=== PATIENT | female | born 1955 | race Caucasian/White ===

== ENCOUNTER → 2017-02-25 09:19 | Outpatient (CLI) | payer MEDICARE, MEDICAID, SELFPAY ==
[2017-02-25 11:27] VITALS: PULSE 75
== END ==
PROVIDERS: Family Provider Internal Medicine Adolescent Medicine; PCP Internal Medicine Adolescent Medicine; Visit Provider Internal Medicine Adolescent Medicine
DX: R06.02 Shortness of breath (principal)
CPT/HCPCS: 94060; 94640; 94727; 94729

== ENCOUNTER → 2017-04-11 13:20 | Outpatient (CLI) | payer MEDICARE, MEDICAID, SELFPAY ==
[2017-04-11 13:49] LABS: Basophils # 0.1 K/mm3 (0-0.2); Basophils % 0.6 % (0.1-2.0); Eosinophils # 0.2 K/mm3 (0.0-0.4); Eosinophils % 1.9 % (0.1-12.0); Hematocrit 42.1 % (37.0-47.0); Hemoglobin 14.1 g/dL (12.2-16.2); Lymphocytes # 2.5 K/mm3 (0.7-4.5); Lymphocytes % 31.9 K/mm3 (10-50); Mean Corpuscular HGB Conc 33.4 g/dL (31.8-35.4); Mean Corpuscular Hemoglobin 30.2 pg (27.0-31.2); Mean Corpuscular Volume 90.3 fl (81-99); Mean Platelet Volume 8.4 fl (7.4-10.4); Monocytes # 0.4 K/mm3 (0.1-1.0); Monocytes % 5.3 % (1.7-9.3); Neutrophils # 4.7 K/mm3 (1.8-7.8); Neutrophils % 60.2 % (37.0-80.0); Platelet Count 216 K/mm3 (142-424); Red Blood Count 4.66 M/mm3 (4.20-5.40); Red Cell Distribution Width 12.2 % (11.5-17.5); White Blood Count 7.8 K/mm3 (4.8-10.8)
[2017-04-11 14:28] LABS: Alanine Aminotransferase 24 U/L (12-78); Albumin Level 3.8 gm/dL (3.4-5.0); Albumin/Globulin Ratio 1.2 (1.1-1.8); Alkaline Phosphatase 85 U/L (46-116); Anion Gap 9.6 mEq/L (5-15); Aspartate Amino Transferase 15 U/L (15-37); Bilirubin,Total 0.2 mg/dL (0.2-1.0); Blood Urea Nitrogen 12 mg/dL (7-18); Calcium 8.8 mg/dL (8.5-10.1); Carbon Dioxide 32 mmol/L (21.0-32.0); Chloride 104 mmol/L (98-107); Creatinine,Serum 0.84 mg/dL (0.55-1.02); Estimated Glomerular Filt Rate 68 ml/min (>60); GFR (African American) 83 ML/MIN (>60); Globulin 3.3 gm/dl (1.3-3.2); Glucose 73 mg/dL (74-106); Potassium 3.6 mmoL/L (3.5-5.1); Sodium 142 mmol/L (136-145); Total Protein,Serum 7.1 gm/dL (6.4-8.2)
[2017-04-12 19:06] LABS: Vitamin B12 1488 pg/mL (232-1245)
== END ==
PROVIDERS: PCP Internal Medicine Adolescent Medicine; Visit Provider Specialist
DX: G35 Multiple sclerosis (principal)
CPT/HCPCS: 36415; 80053; 82607; 85025

== ENCOUNTER → 2017-04-16 11:03 | Outpatient (CLI) | payer MEDICARE, MEDICAID, SELFPAY ==
--- NOTE | 2017-04-16 11:07 | MR_ITS ---
MR head/brain wo/w con HISTORY: History of multiple sclerosis Burning in legs with weakness and fatigue, right-sided facial numbness and healing, multiple sclerosis ORDERING PHYSICIAN: Vidhya Lee MD PATIENT AGE: 61 years COMPARISON: 01/08/2016 TECHNIQUE: Standard multiplanar multiecho sequences are performed without and with gadolinium enhancement. FINDINGS: No midline shift, mass effect, intracranial hemorrhage, hydrocephalus, or acute infarction is evident. No restricted diffusion. No enhancing lesions. There are scattered periventricular and subcortical T2 white matter hyperintensities as previously described are similar compared to the previous exam. One lesion along the anterior body of the left lateral ventricle near or at the lateral aspect of the corpus callosum is once again noted which is similar compared to the previous study. No new lesions are evident. The cerebellopontine angle, cerebellum, and brainstem are unremarkable. No lesions are evident within the upper cervical cord or within the cerebellum. IMPRESSION: 1. Stable MRI appearance of the brain. Multiple T2 white matter hyperintensities are once again noted similar to the previous exam in keeping with patient's history of multiple sclerosis 2. No acute infarction or other acute anomalies.
== END ==
PROVIDERS: Family Provider Internal Medicine Adolescent Medicine; PCP Internal Medicine Adolescent Medicine; Visit Provider Specialist
DX: G35 Multiple sclerosis (principal)
CPT/HCPCS: 70553; A9576

== ENCOUNTER → 2018-04-21 12:26 | Outpatient (CLI) | payer MEDICARE, MEDICAID, SELFPAY | PROVIDERS: PCP Internal Medicine Adolescent Medicine; Visit Provider Internal Medicine Adolescent Medicine | DX: R07.9 Chest pain, unspecified (principal) | CPT/HCPCS: 93017 ==

== ENCOUNTER → 2018-10-07 14:23 | Outpatient (CLI) | payer MEDICARE, MEDICAID, SELFPAY ==
[2018-10-07 14:53] LABS: Basophils # 0.1 K/mm3 (0-0.2); Basophils % 0.5 % (0.1-2.0); Eosinophils # 0.2 K/mm3 (0.0-0.4); Eosinophils % 1.7 % (0.1-12.0); Hemoglobin 13.4 g/dL (12.2-16.2); Lymphocytes # 3.2 K/mm3 (0.7-4.5); Mean Corpuscular HGB Conc 32.7 g/dL (31.8-35.4); Mean Corpuscular Hemoglobin 29.5 pg (27.0-31.2); Mean Corpuscular Volume 90.4 fl (81-99); Mean Platelet Volume 7.8 fl (7.4-10.4); Monocytes # 0.5 K/mm3 (0.1-1.0); Monocytes % 5.6 % (1.7-9.3); Neutrophils % 56.2 % (37.0-80.0); Platelet Count 257 K/mm3 (142-424); Red Blood Count 4.54 M/mm3 (4.20-5.40); White Blood Count 8.9 K/mm3 (4.8-10.8)
[2018-10-07 18:09] LABS: Alanine Aminotransferase 18 U/L (12-78); Albumin Level 3.8 gm/dL (3.4-5.0); Alkaline Phosphatase 90 U/L (46-116); Aspartate Amino Transferase 13 U/L (15-37); Bilirubin,Total 0.2 mg/dL (0.2-1.0); Blood Urea Nitrogen 15 mg/dL (7-18); Calcium 9.3 mg/dL (8.5-10.1); Carbon Dioxide 30 mmol/L (21.0-32.0); Chloride 103 mmol/L (98-107); Chol/HDL Ratio 3.7 (1-3.5); Cholesterol 184 mg/dL (140-200); Creatinine,Serum 0.88 mg/dL (0.55-1.02); Estimated Glomerular Filt Rate 65 ml/min (>60); Free T4 (Free Thyroxine) 0.84 ng/dl (0.76-1.46); GFR (African American) 78 ML/MIN (>60); Globulin 3.8 gm/dl (1.3-3.2); Glucose 90 mg/dL (74-106); HDL Cholesterol 50 mg/dL (29-89); LDL Cholesterol 116 mg/dL (0-130); Sodium 143 mmol/L (136-145); Thyroid Stimulating Hormone 2.18 uIU/ml (0.358-3.740); Total Protein,Serum 7.6 gm/dL (6.4-8.2); Triglycerides 89 mg/dL (30-200); VLDL Cholesterol 18 mg/dL (0-40)
[2018-10-09 18:04] LABS: Vitamin B12 1000 pg/mL (232-1245)
== END ==
PROVIDERS: Visit Provider Nurse Practitioner Family
DX: R53.81 Other malaise (principal); I10 Essential (primary) hypertension
CPT/HCPCS: 36415; 80053; 80061; 82607; 84439; 84443; 85025

== ENCOUNTER → 2018-10-09 13:16 | Outpatient (CLI) | payer MEDICARE, MEDICAID, SELFPAY | PROVIDERS: PCP Internal Medicine Adolescent Medicine; Visit Provider Nurse Practitioner Family | DX: G47.33 Obstructive sleep apnea (adult) (pediatric) (principal); R40.0 Somnolence; R06.83 Snoring; G31.84 Mild cognitive impairment of uncertain or unknown etiology; G25.81 Restless legs syndrome | CPT/HCPCS: G0399 ==

== ENCOUNTER → 2018-11-06 15:43 | Outpatient (CLI) | payer MEDICARE, MEDICAID, SELFPAY ==
--- NOTE | 2018-11-06 16:14 | MM_ITS ---
PROCEDURE: MM DIG SCREENING MAMM BI W/CAD CLINICAL INDICATION: SCREENING There is a history of breast cancer patient's maternal grandmother. There has been a previous biopsy left breast for benign disease. COMPARISON: DMSB DIG MAMM-SCREEN JOLEEN from 09/01/2015 DMDXUL DIG MAMM-DX UNI-LT from 02/09/2016 DMSB DIG MAMM-SCREEN JOLEEN W/CAD from 09/09/2016 TECHNIQUE: Standard CC and MLO images were obtained. R2 CAD reviewed. FINDINGS: Minimal scattered fibroglandular densities are seen in both breasts on a background of fatty breast parenchyma. There is a mole lower inner quadrant right breast. There is minimal arterial calcification right breast. There is no suspicious lesion and no suspicious microcalcifications. IMPRESSION: Fibrofatty parenchyma with no suspicious lesions seen BI-RAD Category: 2 Benign Finding(s) FOLLOW-UP: 1YR 1 Year Follow-up (A letter has been sent to the patient regarding results of the study.) Dictated by: Dr. Cameron Kruse MD 11/10/2018 21:[address] Cameron Kruse MD in [place] 11/10/2018 21:27
== END ==
PROVIDERS: PCP Internal Medicine Adolescent Medicine; Visit Provider Nurse Practitioner Family
DX: Z12.31 Encounter for screening mammogram for malignant neoplasm of breast (principal)
CPT/HCPCS: 77067

== ENCOUNTER → 2019-01-18 13:47 | Outpatient (CLI) | payer MEDICARE, MEDICAID, SELFPAY ==
--- NOTE | 2019-01-18 13:50 | XR_ITS ---
PROCEDURE: XR DEXA AXIAL SKELETON CLINICAL HISTORY: POST MENOPAUSAL SCREENING COMPARISON: No exams were available for comparison FINDINGS: The L1-L4 density is 1.100 grams/centimeter sq with a T-score -0.7. Left femoral neck density is 0.854 grams/centimeter sq with a T-score -1.3 IMPRESSION: Osteopenia with moderate fracture risk. Treatment advised. Suggest follow-up exam December 2020 Dictated by: Trey Carbajal MD 01/18/2019 18:59 Electronically signed by Trey Carbajal MD in [place] 01/18/2019 18:59
== END ==
PROVIDERS: PCP Internal Medicine Adolescent Medicine; Visit Provider Nurse Practitioner Family
DX: Z13.820 Encounter for screening for osteoporosis (principal); Z78.0 Asymptomatic menopausal state; M85.89 Other specified disorders of bone density and structure, multiple sites
CPT/HCPCS: 77080

== ENCOUNTER → 2019-03-08 15:48 | Outpatient (CLI) | payer MEDICARE, MEDICAID, SELFPAY ==
--- NOTE | 2019-03-08 15:54 | XR_ITS ---
PROCEDURE: XR CERVICAL SPINE W FLEX/EXT CLINICAL INDICATION: neck pain Right-sided neck pain with headache COMPARISON: No exams were available for comparison FINDINGS: Normal alignment. There is degenerative disc disease at C4-5 C5-6 and C6-C7 and C7-T1. Mild foraminal narrowing noted on the left at C5-C6 and C6-C7 and on the right at C5-C6 and C6-C7. Right-sided carotid artery calcification noted. Flexion and extension views show no abnormal subluxation in flexion or extension. IMPRESSION: 1. Cervical spondylosis with degenerative disc disease and foraminal narrowing as described above. 2. No abnormal subluxation in flexion or extension 3. Carotid artery calcification Dictated by: Trey Carbajal MD 03/08/2019 16:16 Electronically signed by Trey Carbajal MD in [place] 03/08/2019 16:16
== END ==
PROVIDERS: PCP Internal Medicine Adolescent Medicine; Visit Provider Specialist
DX: G35 Multiple sclerosis (principal); M54.2 Cervicalgia
CPT/HCPCS: 72052

== ENCOUNTER → 2019-03-31 13:05 | Outpatient (CLI) | payer MEDICARE, MEDICAID, SELFPAY ==
--- NOTE | 2019-03-31 13:11 | CA_ITS ---
APPROVED REPORT [employer]: Didi Couch RVT Laterality: Bilateral Study Quality: Good Indications: rt sided carotid artery calcification seen on C-spine x-ray Doppler Spectral Velocity Analysis ECA (R) 56.10/6.30 cm/s ECA (L) 48.60/7.20 cm/s dICA (R) 51.20/16.90 cm/s dICA (L) 60.50/19.30 cm/s Cedrick (R) 57.40/18.60 cm/s Cedrick (L) 62.90/18.70 cm/s pICA (R) 60.40/21.80 cm/s pICA (L) 48.40/17.00 cm/s dCCA (R) 68.10/14.80 cm/s dCCA (L) 65.40/14.90 cm/s pCCA (R) 72.60/13.50 cm/s pCCA (L) 72.20/14.40 cm/s Vert (R) 45.90/11.20 cm/s Vert (L) 30.60/11.00 cm/s ICA/CCA 0.89 ICA/CCA 0.96 Findings Study suggests 20-49% stenosis (lower end of scale) in the right internal cartoid artery. Study suggests less than 20% stenosis of the left internal cartoid artery. Antegrade flow seen bilateral vertebral arteries. Conclusion Study suggests 20-49% stenosis (lower end of scale) in the right internal cartoid artery. Study suggests less than 20% stenosis of the left internal cartoid artery. Antegrade flow seen bilateral vertebral arteries. Electronically signed by : Trey Carbajal MD 03/31/2019 16:39:25
== END ==
PROVIDERS: PCP Internal Medicine Adolescent Medicine; Visit Provider Specialist
DX: I65.23 Occlusion and stenosis of bilateral carotid arteries (principal)
CPT/HCPCS: 93880

== ENCOUNTER 2019-04-07 14:00 | Outpatient (RCR) | payer MEDICARE, MEDICAID, SELFPAY ==
--- NOTE | 2019-03-10 15:19 | HMH.PTOPEV ---
PT Outpatient Evaluation Rehab PT Outpatient Evaluation Start: 03/10/19 14:47 Freq: Status: Active Protocol: Document 03/10/19 14:47 KATELYNN (Rec: 03/10/19 15:18 KATELYNN [id number]) Electronically Signed By Estevan Hook, PT 03/10/19 14:47 Outpatient Therapy Subjective History Subjective History Patient is a 63 year old female presenting to outpatient PT with reports of acute cervical spine pain starting approx 2 months ago of insidious onset. She was previously being treated by chiropractor with minimal improvements noted. Most recent diagnostics indicate cervical spondylosis, DDD and facet narrowing. Comrobidities include MS, blindness, hx of hysterectomy and tubal ligation. Chief Complaint Pain,Spasms Symptom Type Ache Symptoms Relieved By Rest/Positioning,Heat, Prescription Meds Symptoms Aggravated By Sitting,Physical Activity, Walking Prior Functional Limitations Lifting,Housework,Sitting, Recreation Activity,Walking Current Functional Limitations Lifting,Housework,Sitting, Recreation Activity,Walking Symptom Description Constant but Variable Level of pain today (0-10) 7 Pain scale - at its best (0-10) 5 Pain scale - at its worst (0-10) 9 Cervical Eval Palpation Cervical Muscles R Cervical Paraspinal,R Upper Trapezius,R Thoracic Paraspinals Posture Head/C-Spine Posture Sitting Position C-Spine Flattened Head/C-Spine Posture Standing Position C-Spine Flattened Flexibility Deficits Upper Trapezius Muscle Length (R) Moderate Tightness Levaetor Scapulae Muscle Length (R) Moderate Tightness Scalene Group Muscle Length (R) Mild Tightness Pectoralis Minor Muscle Length (R) Moderate Tightness Passive Joint Mobility Cervical PIVM Dec: R C3/4 L C3/4 R C4/5 L C4/5 R C5/6 L C5/6 R C6/7 L C6/7 R C7/T1 L C7/T1 WNL: R OA
== END 2019-04-07 14:05 | disposition home or self-care (01) ==
LOC: PT 14:00
PROVIDERS: PCP Internal Medicine Adolescent Medicine; Visit Provider Specialist
DX: M54.2 Cervicalgia (principal); G35 Multiple sclerosis
CPT/HCPCS: 20560; 97010; 97014; 97035; 97110; 97140; 97163; G0283

== ENCOUNTER → 2019-05-12 15:24 | Outpatient (CLI) | payer MEDICARE, MEDICAID, SELFPAY ==
--- NOTE | 2019-05-12 15:32 | XR_ITS ---
PROCEDURE: XR CHEST 2V CLINICAL HISTORY: ACUTE FEBRILE ILLNESS,FLU SYMPTOMS COMPARISON: CXR1 CHEST-PORTABLE from 05/03/2012 CXR CHEST(2 VIEWS-NOT PORTABLE) from 06/08/2013 CXR CHEST(2 VIEWS-NOT PORTABLE) from 01/29/2017 FINDINGS: The cardiomediastinal silhouette and pulmonary vascularity are within normal limits. The lungs are clear without infiltrates, suspicious nodules, or pleural effusions. No acute bony abnormalities. IMPRESSION: No acute findings. Dictated by: Trey Carbajal MD 05/12/2019 16:07 Electronically signed by Trey Carbajal MD in [place] 05/12/2019 16:07
== END ==
PROVIDERS: PCP Internal Medicine Adolescent Medicine; Visit Provider Internal Medicine Adolescent Medicine
DX: R50.9 Fever, unspecified (principal); R68.89 Other general symptoms and signs
CPT/HCPCS: 71046

== ENCOUNTER 2019-07-27 19:06 | Emergency (ER) | payer MEDICARE, MEDICAID, SELFPAY ==
[2019-07-27 19:21] VITALS: BP 145/83; PULSE 72; RESP 22; O2SAT 93; BMI 28.5
[2019-07-27 19:27] VITALS: BP 164/89; PULSE 65; RESP 16; TEMP 36.8; O2SAT 97; BMI 29.2
--- NOTE | 2019-07-27 19:43 | HMH.EDGENADL ---
ED Disposition Clinical Impression: Cervical radiculopathy Disposition: Home, Self-Care Condition on Discharge: Good Instructions: DI for Cervical Radiculopathy Additional Instructions: Additional instructions for CONTROLLED SUBSTANCES: You have been prescribed a medication that is a controlled substance. Controlled substances include pain medications known as opiates and sedative nerve medications known as benzodiazepines. Tramadol, fioricet, and gabapentin are also controlled substances. Some common opiates include: Codeine (such as Tylenol #3) Hydrocodone (Vicodin, Lortab, Lorcet, Annona) Oxycodone (Percocet, Percodan, Oxycodone, Oxy IR) Some common benzodiazepines include: Diazepam (Valium) Lorazepam (Ativan) Alprazolam (Xanax) Clonazepam (Klonopin) Oxazepam (Serax) All of these controlled substances are highly addictive and frequently abused. Misuse can and frequently does lead to addiction as well as overdose and . Medication should be stored in a locked cabinet or other secure storage unit. Do not store the medication in a motor vehicle. Short term supplies, 3 days or less, are prescribed because of the highly addictive nature of the medication. Any of the controlled substance medication NOT taken should be disposed of properly and NOT SAVED. The recommended method of disposing of unused medications is: Place the medicines in a sealable plastic bag. If the medicine is a solid, crush it or add water to dissolve it. Add something undesirable (cat litter, coffee grounds, etc.) Dispose of sealed bag in household trash Do not flush or pour unused medicines down a sink or drain. Controlled substances should not be shared, given away or sold. Because of the addictive nature and frequent abuse, these medications are sometimes stolen. These medications should be kept in a safe place where they cannot be stolen. Do not keep them in your car or purse. Lost or stolen prescriptions for controlled substances WILL NOT BE REFILLED in this emergency department, regardless of whether a police report was filed. Prescriptions: Oxycodone HCl/Acetaminophen [Percocet 5/325mg tablet] 1 tab PO Q6HP PRN #10 tablet PRN Reason: Moderate To Severe Pain Transmission Status: Sent to [facility] predniSONE [Prednisone 20mg Tab] 20 mg PO BID #10 tab Transmission Status: Pending to [facility] Referrals: Tree Clemons MD [Primary Care Provider] - - Critical Care Critical Care Time: No Attestation: On 07/27/19, the high probability of a clinically significant, sudden or life threatening deterioration of the following system(s) required my full and direct attention, intervention and personal management. The time I documented below is in addition to time spent performing reported procedures but includes the following listed in this critical care notation. Medical Decision Making - Sea Inquiry Pt receiving controlled substance: Yes Sea was queried for this patient: Yes Reference #:: [id number] Risks and benefits of using a controlled substance: were discussed with pt by me Comment: 0 rxs. Vital Signs: 07/27/19 19:21 07/27/19 19:27 Temperature 98.2 F Temperature Source Oral Pulse Rate [Left Brachial] 72 65 Respiratory Rate 22 16 Blood Pressure [Left Arm] 145/83 H 164/89 H Blood Pressure Mean [Left Arm] 103 114 Blood Pressure Source [Left Arm] Automatic Cuff Automatic Cuff Blood Pressure Position [Left Arm] Sitting Sitting 02 Sat by Pulse Oximetry 93 L 97 Oxygen Delivery Method Room Air Room Air Orders (Tests/Meds): ED MEDICATIONS Discontinued Medications Generic Name Dose Route Start Last Admin Trade Name Freq PRN Reason Stop Dose Admin Dexamethasone Sodium Phosphate 8 mg 07/27/19 19:43 Decadron 4mg/Ml 1ml Vial IM 07/27/19 19:44 ONCE ONE Hydromorphone HCl 1 mg 07/27/19 19:43 Dilaudid 2mg/Ml Syringe IM 07/27/19 19:44 ONCE ONE Ondanse
[2019-07-27 20:14] VITALS: BP 156/81; PULSE 62; RESP 17; TEMP 36.8; O2SAT 97
== END 2019-07-27 20:15 | disposition home or self-care (01) ==
PROVIDERS: Emergency Provider Emergency Medicine; PCP Internal Medicine Adolescent Medicine
DX: M54.12 Radiculopathy, cervical region (principal); G35 Multiple sclerosis; K21.9 Gastro-esophageal reflux disease without esophagitis; I10 Essential (primary) hypertension; Z88.5 Allergy status to narcotic agent; F41.8 Other specified anxiety disorders; Z90.79 Acquired absence of other genital organ(s); Z79.899 Other long term (current) drug therapy
CPT/HCPCS: 96372; 99281; J2405

== ENCOUNTER 2019-08-16 13:25 | Emergency (ER) | payer MEDICARE, MEDICAID, SELFPAY ==
[2019-08-16 13:27] VITALS: BP 165/73; PULSE 80; RESP 16; TEMP 36.6; O2SAT 98; BMI 29.2
--- NOTE | 2019-08-16 14:50 | CT_ITS ---
PROCEDURE: CT CERVICAL SPINE WO CON CLINICAL INDICATION: neck pain With radiation to right shoulder COMPARISON: 03/08/2019 cervical spine TECHNIQUE: Axial images obtained with sagittal and coronal reformats. All CT scans at the facility use one or more dose reduction, viz: automated exposure control, ma/kV adjustment per patient size (including targeted exams where dose is matched to indication, i.e. head), or iterative reconstruction technique. Axial spiral CT scanning performed of the cervical spine beginning at the base of the skull and continuing to the upper T-spine. 3-D multiplanar reconstruction with 3-D manipulation of volumetric data set in image rendering was completed by the radiologist and/or technologist with the supervision of the radiologist on independent workstation. FINDINGS: There is very mild diffuse levo scoliotic curvature of the cervical spine. There multilevel degenerate changes most prominent at the C5-6 and C6-7 levels where there is disc space narrowing and anterior and posterior osteophytic spurring. There is no significant disc protrusion and there is no significant neural foraminal narrowing on either side. There is mild multilevel osteoarthritic changes of the apophyseal joints. The prevertebral soft tissues are normal and the odontoid is normal. IMPRESSION: Moderate multilevel degenerate changes Dictated by: Dr. Cameron Kruse MD 08/17/2019 08:[address] Cameron Kruse MD in [place] 08/17/2019 08:25
[2019-08-16 14:51] VITALS: BP 187/79; PULSE 79; RESP 18; O2SAT 99
--- NOTE | 2019-08-16 14:51 | CT_ITS ---
PROCEDURE: CT CHEST WO CON CLINICAL INDICATION: chest pain right-sided COMPARISON: PA and lateral chest 05/12/2019 . TECHNIQUE: Axial images obtained with sagittal and coronal reformats. All CT scans at the facility use one or more dose reduction, viz: automated exposure control, ma/kV adjustment per patient size (including targeted exams where dose is matched to indication, i.e. head), or iterative reconstruction technique. FINDINGS: HEART AND MEDIASTINAL STRUCTURES: Cardiac size is normal. There is mild coronary artery calcification. There is no pericardial effusion. There is mild arthrosclerotic calcification of the aortic arch and descending thoracic aorta. LUNGS AND PLEURAL SPACES: The lung piña are well-expanded and appear clear of infiltrate. There are few scattered small calcified granulomata in both lungs. There is no pleural fluid. BONY STRUCTURES: No acute bony abnormalities apparent. There mild to moderate multilevel degenerate changes of the mid and lower thoracic spine. UPPER ABDOMEN: The stomach is distended with ingested food particles. ADDITIONAL FINDINGS: No other significant abnormalities. IMPRESSION: Evidence of old granulomatous disease, no acute cardiopulmonary disease seen Dictated by: Dr. Cameron Kruse MD 08/17/2019 08:[address] Cameron Kruse MD in [place] 08/17/2019 08:29
[2019-08-16 15:42] LABS: Basophils # 0.1 K/mm3 (0-0.2); Basophils % 0.7 % (0.1-2.0); Eosinophils # 0.2 K/mm3 (0.0-0.4); Eosinophils % 2.2 % (0.1-12.0); Hematocrit 45.1 % (37.0-47.0); Lymphocytes # 3.4 K/mm3 (0.7-4.5); Lymphocytes % 32.9 % (10-50); Mean Corpuscular HGB Conc 33.3 g/dL (31.8-35.4); Mean Corpuscular Hemoglobin 29.5 pg (27.0-31.2); Mean Corpuscular Volume 88.5 fl (81-99); Mean Platelet Volume 8.4 fl (7.4-10.4); Monocytes # 0.6 K/mm3 (0.1-1.0); Monocytes % 5.8 % (1.7-9.3); Neutrophils % 58.5 % (37.0-80.0); Platelet Count 235 K/mm3 (142-424); Red Blood Count 5.09 M/mm3 (4.20-5.40); White Blood Count 10.2 K/mm3 (4.8-10.8)
[2019-08-16 15:43] LABS: Chloride 104 mmol/L (98-107); Sodium 141 mmol/L (136-145)
[2019-08-16 15:44] LABS: Potassium 3.5 mmoL/L (3.5-5.1)
[2019-08-16 15:47] LABS: Anion Gap 9.5 mEq/L (5-15); Blood Urea Nitrogen 14 mg/dl (7-17); Calcium 9.5 mg/dl (8.4-10.2); Carbon Dioxide 31 mmol/L (22.0-30.0); Creatinine Clearance Estimated 60 mL/min (50-200); Estimated Glomerular Filt Rate 50 ml/min (>60); GFR (African American) 60 ML/MIN (>60); Glucose 120 mg/dl (74-100)
[2019-08-16 16:04] LABS: Troponin I < 0.01 ng/ml (0.00-0.034)
[2019-08-16 16:30] VITALS: BP 170/86; PULSE 72; RESP 20; O2SAT 99
--- NOTE | 2019-08-16 16:38 | HMH.EDGENADL ---
ED Disposition Clinical Impression: Multiple sclerosis, Cervical radiculopathy Disposition: Home, Self-Care Condition on Discharge: Good Instructions: DI for Acute Pain -- Adult Prescriptions: methylPREDNISolone [Medrol 4mg tab] 4 mg PO DIRECTED #21 tab Transmission Status: Pending to [facility] Nabumetone 750 mg PO BID 10 Days #20 tab Transmission Status: Pending to [facility] Tizanidine HCl [Zanaflex 4mg tablet] 4 mg PO TID 10 Days #30 tab Transmission Status: Pending to [facility] Referrals: Tree Clemons MD [Primary Care Provider] - - Critical Care Critical Care Time: No Attestation: On 08/16/19, the high probability of a clinically significant, sudden or life threatening deterioration of the following system(s) required my full and direct attention, intervention and personal management. The time I documented below is in addition to time spent performing reported procedures but includes the following listed in this critical care notation. Medical Decision Making - Medical Records Medical records reviewed: Yes: I reviewed the patient's medical records. - Sea Inquiry Pt receiving controlled substance: No Vital Signs: 08/16/19 13:27 08/16/19 14:51 Temperature 98 F Temperature Source Oral Pulse Rate [Left Radial] 80 79 Respiratory Rate 16 18 Blood Pressure [Right Arm] 165/73 H 187/79 H Blood Pressure Mean [Right Arm] 103 115 Blood Pressure Source [Right Arm] Automatic Cuff Blood Pressure Position [Right Arm] Sitting Supine 02 Sat by Pulse Oximetry 98 99 Oxygen Delivery Method Room Air - Lab Data Lab results reviewed: Yes: I reviewed the patient's lab results. Lab Results 08/16/19 15:20: WBC 10.2, RBC 5.09, Hgb 15.0, Hct 45.1, MCV 88.5, MCH 29.5, MCHC 33.3, RDW 13.0, Plt Count 235, MPV 8.4, Neut % (Auto) 58.5, Lymph % (Auto) 32.9, [place] % (Auto) 5.8, Eos % (Auto) 2.2, Baso % (Auto) 0.7, Neut # (Auto) 6.0, Lymph # (Auto) 3.4, [place] # (Auto) 0.6, Eos # (Auto) 0.2, Baso # (Auto) 0.1 08/16/19 15:20: Sodium 141, Potassium 3.5, Chloride 104, Carbon Dioxide 31 H, Anion Gap 9.5, BUN 14, Creatinine 1.10 H, Estimated Creat Clear 60, Estimated GFR 50 L, Est GFR ( Amer) 60, Glucose 120 H, Calcium 9.5, Troponin I < 0.01 Result diagrams: 08/16/19 15:20 08/16/19 15:20 Orders (Tests/Meds): ORDERS Category Date Time Status CT cervical spine wo con Stat Cat Scan 08/16/19 14:[address] chest wo con Stat Cat Scan 08/16/19 14:51 Taken Troponin I Q3H Lab 08/16/19 18:00 Ordered Troponin I Q3H Lab 08/16/19 21:00 Ordered - CT Data CT Scan: Head, C-Spine, Chest Time Received: 13:00 Preliminary Findings: Abnormal (There are straightening of the cervical spine suggestive of acute muscle spasms patient does have significant facet facet apathy and arthropathy in the cervical spine more so on the right than the left.) - ECG Data Tracing #1 I reviewed this ECG and interpreted as documented below: Normal Sinus Rhythm: Yes General Adult HPI - General Chief complaint: PAIN Stated complaint: Pain right arm neck back pain No Accident Time Seen by Provider: 08/16/19 13:28 Mode of Arrival: Ambulatory Source of Information: Patient Limitations: No Limitations Description of Symptoms (Recalled from ER Triage Doc. by RN): to ed per pvt car with c/o neck, back, shoulder pain x several months progressively worse radiating down jose arms and hands pt states she is to see neuro in 2 days. - History of Present Illness HPI narrative: 63-year-old female presents with right arm pain and neck pain that is started about 2 days ago. She does have chronic pain secondary to MS. And this is an acute exacerbation on chronic pain. Patient denies any trauma or injury.Patient denies any recent cough or shortness of breath, patient denies any sore throat or headache, patient denies any loss of taste or smell, patient denies any malaise or fatigue, patient denies an
[2019-08-16 17:31] VITALS: BP 108/78; PULSE 78; RESP 16; TEMP 36.6; O2SAT 98
== END 2019-08-16 17:33 | disposition home or self-care (01) ==
PROVIDERS: Emergency Provider Family Medicine; PCP Internal Medicine Adolescent Medicine
DX: M54.12 Radiculopathy, cervical region (principal); G35 Multiple sclerosis; F41.8 Other specified anxiety disorders; I10 Essential (primary) hypertension; K21.9 Gastro-esophageal reflux disease without esophagitis; Z90.79 Acquired absence of other genital organ(s); Z88.5 Allergy status to narcotic agent
CPT/HCPCS: 71250; 72125; 80048; 84484; 85025; 96374; 99283

== ENCOUNTER → 2019-08-23 13:40 | Outpatient (CLI) | payer MEDICARE, MEDICAID, SELFPAY ==
[2019-08-23 22:09] LABS: Coronavirus 19 IgG Antibody Positive (Negative); Coronavirus 19 IgM Antibody Negative (Negative)
== END ==
PROVIDERS: Visit Provider Nurse Practitioner Family
DX: Z01.818 Encounter for other preprocedural examination (principal)
CPT/HCPCS: 36415; 86328

== ENCOUNTER → 2019-08-25 19:27 | Outpatient (CLI) | payer MEDICARE, MEDICAID, SELFPAY | PROVIDERS: PCP Internal Medicine Adolescent Medicine; Visit Provider Nurse Practitioner Family | DX: G47.33 Obstructive sleep apnea (adult) (pediatric) (principal) | CPT/HCPCS: 95811 ==

== ENCOUNTER → 2019-09-01 13:08 | Outpatient (CLI) | payer MEDICARE, MEDICAID, SELFPAY ==
--- NOTE | 2019-09-01 13:09 | MR_ITS ---
PROCEDURE: MR CERVICAL SPINE WO CON CLINICAL INDICATION: CERVICAL PAIN Neck pain with rt arm pain down to elbow. Pain, numbness, and tingling down rt arm. No trauma, prior CT 08-16-19 Prior MRI 01-17-15 COMPARISON: [facility] MRI-C-SPINE W/WO from 01/17/2015 TECHNIQUE: Standard multiplanar multiecho sequences are performed without contrast. 3-D MIP and myelographic images are also rendered and reviewed FINDINGS: There is normal alignment. The craniocervical junction has an unremarkable appearance. C2-C3: Unremarkable. C3-C4: Unremarkable. C4-C5: Mild degenerative disc disease with minimal bulging disc. C5-C6: Mild degenerative disc disease with minimal bulging disc. C6-C7: Mild degenerative disc disease with minimal bulging disc C7-T1 and T1-T2 have an unremarkable appearance. T2-T3: There is a small central disc protrusion/herniation at T2-T3. This is incompletely covered on the axial images but well delineated on the sagittal images without cord impingement. IMPRESSION: 1. Mild multilevel degenerative disc disease. 2. Small central disc protrusion/herniation at T2-T3 Dictated by: Trey Carbajal MD 09/02/2019 14:13 Electronically signed by Trey Carbajal MD in [place] 09/02/2019 14:13
== END ==
PROVIDERS: PCP Internal Medicine Adolescent Medicine; Visit Provider Specialist
DX: M54.2 Cervicalgia (principal)
CPT/HCPCS: 72141; 76376

== ENCOUNTER → 2019-09-20 13:02 | Outpatient (POV) | payer MEDICARE, MEDICAID, SELFPAY ==
[2019-09-20 13:09] VITALS: BP 174/89; PULSE 76; RESP 18; TEMP 36.5; O2SAT 97; BMI 29.0
--- NOTE | 2019-09-20 13:35 | HMH.PAINSOAP ---
[facility] Pain Management SOAP Note Subjective:: Patient is a 61-year-old white female who presents today for complaints of neck pain with radiation into her right arm. She says that this pain is been ongoing for 12 years. She rates her pain a 7 out of 10. She did undergo imaging a week ago of her cervical spine. Patient I did discuss her MRI and we did discuss options, however, she is not interested in injective therapy or implanted devices. Patient says that she has had injections in the past and is not gotten relief. She is scheduled to have a nerve conduction study as well as physical therapy at this time. She is not interested in any type of treatment that we have to offer at this time. Review of Systems General: No recent weight changes, no fever, no sleep disturbances Respiratory: No cough, no shortness of air, no recurring pulmonary infections Cardiovascular/peripheral vascular: No chest pain, no palpitations, no edema, no shortness of breath Gastrointestinal: No new onset incontinence, normal bowel movements reported Genitourinary: No new onset incontinence Musculoskeletal: Neck pain, right arm pain with numbness and tingling Psychiatric: Normal mood/affect Neurological: [Denies weakness in extremities], [denies balance issues] Objective:: Physical exam General: Alert and oriented x3, no acute distress, pleasant and cooperative, [on room air] Lungs: Respirations even and unlabored, symmetrical chest expansion Eyes: PERRL Musculoskeletal: Flexion and extension of her vocal spine somewhat guarded secondary to pain, deep tendon reflexes normal, strength in upper and lower extremities [5/5], normal gait noted Neurological: Speech clear, sales service assistant equal, no gross sensory deficit Assessment:: Degenerative disc disease cervical spine with cervical radiculopathy symptoms, Plan:: Unfortunately the patient is not interested in any type of interventions that we have to offer. She would like to follow-up with a neurologist at this time. Patient has been instructed to contact the clinic if she has any concerns in the future. The patient and I specifically discussed risk factors for COVID19. These risks include, but are not limited to age greater than 60, heart or lung disease, diabetes, immunosuppression, and travel. We also discussed NSAIDs may worsen COVID19 infection or symptoms. Patient should not use NSAIDs to treat COVID19 signs or symptoms. Patient was also informed that any type of corticosteroid of any form (oral or injection) will decrease the patient's immune system response and may increase the likelihood of COVID19 infection [address] symptoms[address]. Ford has reviewed this note and agrees with this plan of care. This note was dictated using voice recognition software and make contain errors or omissions. [facility] History I have reviewed the patient's past medical history: Yes Medical History: Reports:: Anxiety, Depression, Gastroesophageal Reflux Disease(GERD), Hypertension *Have you ever received a pneumonia vaccine?: Yes *Have you received a flu vaccine this season?: Yes Other Medical History: Reports: Arthritis, Other Laterality Cases: Left: Breast Biopsy Other Surgeries: Yes: Colonoscopy, Hysterectomy-Total, Tubal Ligation, Other - *Social History Smoking Status: Former smoker Tobacco Type: cigarettes # Packs/Day (cigarettes): 1 Alcohol Intake: never Alcohol Intake Frequency:: other Substance Use Type: denies use *Occupational Status:: disabled Housing: house Household Members: other (granddaughter) *Travel in the last 8 weeks: None - Psychiatric History Pschychiatric History:: Reports:: Anxiety, Depression Family Hx:: Coronary Artery Disease
== END ==
PROVIDERS: Visit Provider Clinical Nurse Specialist Family Health
DX: M50.10 Cervical disc disorder with radiculopathy, unspecified cervical region (principal)
CPT/HCPCS: 99212

== ENCOUNTER 2019-10-01 15:00 | Outpatient (RCR) | payer MEDICARE, MEDICAID, SELFPAY ==
--- NOTE | 2019-09-13 14:37 | HMH.PTOPEV ---
PT Outpatient Evaluation Rehab PT Outpatient Evaluation Start: 09/13/19 13:54 Freq: Status: Active Protocol: Document 09/13/19 13:54 TAVIABART (Rec: 09/13/19 14:37 LEA [id number]) Electronically Signed By Cyrus Crocker PT 09/13/19 13:54 Outpatient Therapy Subjective History Subjective History This is the initial Physical Therapy evaluation for Hazel Kern. Pt reports pain in neck and UE for years . Pt reports last several months pain has increased. Pt reports that maybe she was mowing and turned it wrong which increased pain. Pt reports she has pain in BUE w/ R>L, with pain going into hands. Pt reports her pain is constant. Chief Complaint Pain Symptom Type Ache,Sharp,Stabbing,Burning, Numbness,Tingling,Other Symptoms Relieved By Heat,Ice,OTC Meds Symptoms Aggravated By Physical Activity Current Functional Limitations Lifting,Housework,Sleeping, Recreation Activity Symptom Description Constant but Variable Level of pain today (0-10) 4 Pain scale - at its best (0-10) 4 Pain scale - at its worst (0-10) 10 Cervical Eval Palpation Cervical Muscles R Cervical Paraspinal,L Cervical Paraspinal,R Suboccipital,L Suboccipital,R CT Junction,L CT Junction,R Upper Trapezius,L Upper Trapezius Cervical/Thoracic Palpation Findings Tenderness,Muscle Guarding AROM Cervical Spine Extension Active Range of 45 Motion (degrees) Cervical Spine Flexion Active Range of 60 Motion (degrees) Cervical Spine Right Lateral Flexion 40 Active Range of Motion (degrees) Cervical Spine Left Lateral Flexion 40 Active Range of Motion (degrees) Cervical Spine Right Rotation Active 70 Range of Motion (degrees) Cervical Spine Left Rotation Active 70 Range of Motion (degrees) DTR Rt Biceps 0 Lt Biceps 0 Rt Brachioradialis 0 Lt Brachioradialis 0 Special Test C-Spine Foraminal Compression (Spurling) Positive Left,Positive Right Test C-Spine Foraminal Distraction Test Positive C-Spine Compression Test Negative Left,Negative Right Outpatient Therapy Assessment Impairments Problems/Impairmments Palpat
== END 2019-10-01 15:05 | disposition home or self-care (01) ==
LOC: PT 15:00
PROVIDERS: PCP Internal Medicine Adolescent Medicine; Visit Provider Specialist
DX: M54.2 Cervicalgia (principal); G89.29 Other chronic pain; M79.601 Pain in right arm
CPT/HCPCS: 97010; 97012; 97014; 97110; 97163; G0283

== ENCOUNTER 2019-10-15 15:00 | Outpatient (RCR) | payer MEDICARE, MEDICAID, SELFPAY ==
--- NOTE | 2019-10-11 15:45 | HMH.OTOPEV ---
OT Inpatient Evaluation Rehab OT Outpatient Eval Start: 10/11/19 15:31 Freq: Status: Active Protocol: Document 10/11/19 15:32 RMDUNCAN (Rec: 10/11/19 15:45 [facility] [id number]) Electronically Signed By Bhavin Bass OT 10/11/19 15:32 Outpatient Therapy Subjective History Subjective History Pt is a 63 year old female who reports to therapy for initial evaluation to right wrist. Pt reports she has been having pain on and off at right wrist/hand for years now. Pt does not recall a specific injury causing the pain. Pt had a nerve conduction test ~1 week ago which dx pt with CTS in right wrist. Pt has a past medical history of MS; pt was diagnosed in 1992. Pt is also legally blind and has sitters with her certain days a week. Pt claims she is independent with ADL's. Pt demonstrates with normal AROM at wrist. 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 Therapist will continue to see patient in order to address all deficits. Chief Complaint Pain,Weakness,Decreased Electric Utility Lineworker Strength Symptom Type Ache,Throb,Sharp,Dull,Numbness ,Tingling Symptoms Relieved By Nothing,Activity Symptoms Aggravated By Physical Activity Prior Functional Limitations None Current Functional Limitations Lifting,Housework,Sleeping, Recreation Activity Symptom Description Intermittent,Activity Dependent Level of pain today (0-10) 1 Pain scale - at its best (0-10) 1 Pain scale - at its worst (0-10) 4 Wrist/Hand Eval Wrist Range of Motion Right Wrist Extension Active Range of Motion ( 70 degrees degrees) Wrist Flexion Active Range of Motion ( 60 degrees degrees) Wrist Radial Deviation Active Range of 25 degrees Motion (degrees) Wrist Ulnar Deviation Active Range of 25 degrees Motion (degrees) Forearm Supination Active Range of 90 degrees Motion (degrees) Forearm Pronation Active Range of Motion 90 degrees (de
== END 2019-10-15 15:05 | disposition home or self-care (01) ==
LOC: OT 15:00
PROVIDERS: Visit Provider Specialist
DX: G56.01 Carpal tunnel syndrome, right upper limb (principal)
CPT/HCPCS: 97110; 97140; 97165

== ENCOUNTER → 2019-11-09 12:51 | Outpatient (CLI) | payer MEDICARE, MEDICAID, SELFPAY ==
[2019-11-09 13:40] LABS: Basophils # 0.1 K/mm3 (0-0.2); Basophils % 0.7 % (0.1-2.0); Eosinophils # 0.2 K/mm3 (0.0-0.4); Eosinophils % 1.8 % (0.1-12.0); Hemoglobin 14.3 g/dL (12.2-16.2); Lymphocytes # 2.5 K/mm3 (0.7-4.5); Lymphocytes % 30.9 % (10-50); Mean Corpuscular HGB Conc 33.3 g/dL (31.8-35.4); Mean Corpuscular Hemoglobin 29.9 pg (27.0-31.2); Mean Corpuscular Volume 89.6 fl (81-99); Mean Platelet Volume 9.6 fl (7.4-10.4); Monocytes # 0.5 K/mm3 (0.1-1.0); Monocytes % 6.5 % (1.7-9.3); Neutrophils # 4.9 K/mm3 (1.8-7.8); Neutrophils % 60.1 % (37.0-80.0); Platelet Count 212 K/mm3 (142-424); White Blood Count 8.1 K/mm3 (4.8-10.8)
[2019-11-09 14:18] LABS: Chloride 104 mmol/L (98-107); Potassium 4.4 mmoL/L (3.5-5.1); Sodium 142 mmol/L (136-145)
[2019-11-09 14:21] LABS: Alanine Aminotransferase 16 U/L (12-78); Albumin Level 4.4 g/dl (3.5-5.0); Albumin/Globulin Ratio 1.4 (1.1-1.8); Alkaline Phosphatase 75 U/L (38-126); Anion Gap 12.4 mEq/L (5-15); Aspartate Amino Transferase 29 U/L (14-36); Bilirubin,Total 0.7 mg/dl (0.2-1.3); Blood Urea Nitrogen 11 mg/dl (7-17); Carbon Dioxide 30 mmol/L (22.0-30.0); Cholesterol 178 mg/dl (140-200); Estimated Glomerular Filt Rate 72 ml/min (>60); GFR (African American) 87 ML/MIN (>60); Globulin 3.1 g/dL (1.3-3.2); Total Protein,Serum 7.5 g/dl (6.3-8.2); Triglycerides 90 mg/dl (30-150); VLDL Cholesterol 18 mg/dL (0-40)
[2019-11-09 14:22] LABS: Chol/HDL Ratio 3.4 (1-3.5); Glucose 103 mg/dl (74-100); HDL Cholesterol 52 mg/dl (40-60)
[2019-11-09 14:33] LABS: Direct LDL Cholesterol 108.48 mg/dL (100-129)
[2019-11-09 14:52] LABS: Thyroid Stimulating Hormone 1.11 uIU/mL (0.465-4.68)
== END ==
PROVIDERS: Visit Provider Nurse Practitioner Family
DX: I10 Essential (primary) hypertension (principal); G47.33 Obstructive sleep apnea (adult) (pediatric)
CPT/HCPCS: 36415; 80053; 80061; 84443; 85025

== ENCOUNTER → 2019-11-10 12:41 | Outpatient (CLI) | payer MEDICARE, MEDICAID, SELFPAY ==
--- NOTE | 2019-11-10 12:41 | MM_ITS ---
PROCEDURE: MM DIG SCREENING MAMM BI W/CAD Digital Breast Tomosynthesis Included CLINICAL INDICATION: screening xmg There is a history of breast cancer patient's maternal grandmother. The patient currently is on estrogen. COMPARISON: MG DMDXUL DIG MAMM-DX UNI-LT from 02/09/2016 MG DMSB DIG MAMM-SCREEN JOLEEN W/CAD from 09/09/2016 MG MM DIG SCREENING MAMM BI W/CAD from 11/06/2018 TECHNIQUE: Standard CC and MLO images and 3D Tomosynthesis was obtained. R2 CAD reviewed. FINDINGS: The breasts are composed primarily of fat with scattered fibroglandular densities in the central portions of both breast and the findings are bilateral and symmetrical. There is faint arterial calcification in each breast. There is a mole marker right breast. There is a stable tiny benign-appearing nodular density lower outer right breast. There is no suspicious lesion and no suspicious microcalcifications. IMPRESSION: Fibrofatty parenchyma with no suspicious lesions seen BI-RAD Category: 2 Benign Finding(s) FOLLOW-UP: 1YR 1 Year Follow-up (A letter has been sent to the patient regarding results of the study.) Dictated by: Dr. Cameron Kruse MD 11/12/2019 10:54 Dr. Cameron Kruse MD in [place] 11/12/2019 10:54
== END ==
PROVIDERS: PCP Internal Medicine Adolescent Medicine; Visit Provider Nurse Practitioner Obstetrics & Gynecology
DX: Z12.31 Encounter for screening mammogram for malignant neoplasm of breast (principal)
CPT/HCPCS: 77063; 77067

== ENCOUNTER → 2019-12-13 12:35 | Outpatient (CLI) | payer MEDICARE, MEDICAID, SELFPAY ==
--- NOTE | 2019-12-13 12:41 | XR_ITS ---
PROCEDURE: XR FOOT WT BEARING RT 3V CLINICAL INDICATION: pain COMPARISON: No exams were available for comparison FINDINGS: No fracture or dislocation. No lytic or blastic change. There is normal mineralization. There are minimal osteoarthritic changes at the 1st MTP joint and 1st interphalangeal joint. Other findings:Normal alignment. IMPRESSION: Minimal osteoarthritis Dictated by: Trey Carbajal MD 12/13/2019 16:23 Trey Carbajal MD in [place] 12/13/2019 16:23
--- NOTE | 2019-12-13 12:41 | XR_ITS ---
PROCEDURE: XR FOOT WT BEARING LT 3V CLINICAL INDICATION: pain COMPARISON: No exams were available for comparison FINDINGS: No fracture or dislocation. No lytic or blastic change. There is normal mineralization. Minimal osteoarthritic changes are present at the 1st metacarpal phalangeal joint. There is a type 1 os navicularis. Other findings:None. IMPRESSION: Minimal osteoarthritis 1st MTP joint Dictated by: Trey Carbajal MD 12/13/2019 16:22 Trey Carbajal MD in [place] 12/13/2019 16:22
== END ==
PROVIDERS: PCP Internal Medicine Adolescent Medicine; Visit Provider Podiatrist
DX: M79.672 Pain in left foot (principal); M79.671 Pain in right foot
CPT/HCPCS: 73630

== ENCOUNTER 2019-12-13 14:36 | Emergency (ER) | payer MEDICARE, MEDICAID, SELFPAY ==
[2019-12-13 14:49] VITALS: BP 178/90; PULSE 69; RESP 14; TEMP 36.7; O2SAT 99; BMI 27.3
--- NOTE | 2019-12-13 14:58 | HMH.EDUTC ---
[facility] [place] Disposition Clinical Impression: Need for Tdap vaccination Burn of right hand Qualifiers: Encounter type: initial encounter Burn of hand location: unspecified site Burn degree: partial thickness (2nd degree) Qualified Code(s): T23.201A - Burn of second degree of right hand, unspecified site, initial encounter Disposition: Home, Self-Care Condition on Discharge: Good Instructions: How to Take Care of a Burn, DI for [place] Additional Instructions: Keep the wounds clean and dry. Follow up with your regular doctor. Take the antibiotics as directed and apply the topical antibiotics as directed. GO TO THE ER FOR ANY WORSENING SYMPTOMS Prescriptions: Mupirocin [Bactroban 2% Ointment 22gm tube] 1 applicatio TP TID 7 Days #1 tube Transmission Status: Received by [id number] cephALEXin [Keflex 500mg Cap] 500 mg PO Q6H 10 Days #40 cap Transmission Status: Received by [id number] Referrals: Norma Huerta APRN [Primary Care Provider] - Time of Disposition: 15:13 Medical Decision Making - Medical Records Medical records reviewed: No: I reviewed the patient's medical records. - Sea Inquiry Pt receiving controlled substance: No Vital Signs: 12/13/19 14:49 Temperature 98.1 F Temperature Source Oral Pulse Rate [Radial] 69 Respiratory Rate 14 Blood Pressure [Right Arm] 178/90 H Blood Pressure Mean [Right Arm] 119 Blood Pressure Source [Right Arm] Automatic Cuff Blood Pressure Position [Right Arm] Sitting 02 Sat by Pulse Oximetry 99 Oxygen Delivery Method Room Air Orders (Tests/Meds): ED MEDICATIONS Discontinued Medications Generic Name Dose Route Start Last Admin Trade Name Freq PRN Reason Stop Dose Admin Tetanus/Reduced Diphtheria/Acell Pertussis 0.5 ml 12/13/19 15:13 Tet/Diphth/Pert-Adult 0.5ml Syringe IM 12/13/19 15:14 .ONCE ONE [facility] [place] HPI - General Stated complaint: Possible infected burn R hand Time Seen by Provider: 12/13/19 14:58 Mode of Arrival: Ambulatory Source of Information: Patient Limitations: No Limitations Description of Symptoms (Recalled from Triage Doc. by RN): burned right hand 4 days ago HEENT Symptoms (Recalled from RN notes): No Resp Symptoms (Recalled from RN notes): No Skin Symptoms (Recalled from RN notes): Yes MS Symptoms (Recalled from RN notes): No Functional Status (Recalled from RN notes): wnl - History of Present Illness Provider Complaint: She states that she burned the back of her right hand 4 days ago while cooking. Since then, the burn has developed redness around it. Her tetanus immunzation is not up to date. - Related Data Home Medications Medication Instructions Recorded Confirmed omeprazole 40 mg capsule,delayed 40 mg PO ONCE 04/07/17 12/13/19 release Nabumetone 750 mg PO BID 09/20/19 12/13/19 Tizanidine HCl 4 mg PO QHS 09/20/19 12/13/19 Previous Rx's Medication Instructions Recorded Mupirocin [Bactroban 2% Ointment 1 applicatio TP TID 7 Days #1 tube 12/13/19 22gm tube] Voltaren 1 % topical gel 4 g TOPICAL QID PRN 30 Days #300 g 12/13/19 NS cephALEXin [Keflex 500mg Cap] 500 mg PO Q6H 10 Days #40 cap 12/13/19 Allergies Allergy/AdvReac Type Severity Reaction Status Date / Time gabapentin [GABAPENTIN] Allergy Severe SWELLING Verified 12/13/19 14:05 THROAT meloxicam [MELOXICAM] Allergy Intermediate THROART Verified 12/13/19 14:05 SWELLING codeine [CODEINE] Allergy Unknown NA-NAUSEA/V Verified 12/13/19 14:05 OMITING hydrocodone [HYDROCODONE] Allergy Unknown ATAXIA Verified 12/13/19 14:05 morphine [MORPHINE] Allergy Unknown NA-NAUSEA/V Verified 12/13/19 14:05 OMITING - Worker's Comp Is this a Worker's Comp case?: No [facility] History - Hepatitis A Screen Drug use history?: No High risk sexual behaviors?: No History of sexually transmitted infection?: No Currently employed?: No Childcare worker?: No Do you have indoor plumbing?: Yes
[2019-12-13 15:40] VITALS: BP 178/90; PULSE 69; RESP 14; TEMP 36.7; O2SAT 99
== END 2019-12-13 15:42 | disposition home or self-care (01) ==
PROVIDERS: Emergency Provider Nurse Practitioner Family; PCP Nurse Practitioner Family
DX: T23.201A Burn of second degree of right hand, unspecified site, initial encounter (principal); X08.8XXA Exposure to other specified smoke, fire and flames, initial encounter; Y92.010 Kitchen of single-family (private) house as the place of occurrence of the external cause; Z23 Encounter for immunization; I10 Essential (primary) hypertension; K21.9 Gastro-esophageal reflux disease without esophagitis; F41.8 Other specified anxiety disorders; Z87.891 Personal history of nicotine dependence; Z79.899 Other long term (current) drug therapy; Z88.5 Allergy status to narcotic agent
CPT/HCPCS: G0463; 73630; 90471; 90715; 99201

== ENCOUNTER 2019-12-17 14:51 | Outpatient (CLI) | payer MEDICARE, MEDICAID, SELFPAY ==
[2019-12-17 15:10] VITALS: BP 144/83; PULSE 66; RESP 18; TEMP 36.4; O2SAT 95
== END 2019-12-17 15:10 | disposition home or self-care (01) ==
LOC: INF 14:53
PROVIDERS: PCP Internal Medicine Adolescent Medicine; Visit Provider Internal Medicine Adolescent Medicine
DX: M54.9 Dorsalgia, unspecified (principal)
CPT/HCPCS: 96372

== ENCOUNTER 2020-02-09 13:43 | Emergency (ER) | payer MEDICARE, MEDICAID, SELFPAY ==
--- NOTE | 2020-02-09 13:39 | ECG_ITS ---
APPROVED REPORT Exam: Resting ECG HR:61 bpm ECG Measurements Heart Rate 61 AXES AR 170 P 62 QRSd 80 QRS 14 QT 386 T 47 QTc 388 Conclusion Sinus rhythm with premature atrial complexes Otherwise normal ECG Electronically signed by : Tree Clemons, 02/11/2020 07:13:13
[2020-02-09 13:44] VITALS: BP 159/78; PULSE 75; RESP 16; TEMP 36.8; O2SAT 98; BMI 26.0
[2020-02-09 13:48] VITALS: BMI 26.0
--- NOTE | 2020-02-09 13:48 | XR_ITS ---
PROCEDURE: XR CHEST PORTABLE CLINICAL HISTORY: soa Shortness of air with chest pain COMPARISON: CR CXR CHEST(2 VIEWS-NOT PORTABLE) from 06/08/2013 CR CXR CHEST(2 VIEWS-NOT PORTABLE) from 01/29/2017 CR XR CHEST 2V from 05/12/[address] CHEST WO CON from 08/16/2019 FINDINGS: The cardiomediastinal silhouette and pulmonary vascularity are within normal limits. The lungs are clear without infiltrates, suspicious nodules, or pleural effusions. Calcified granuloma is present left perihilar region. No acute bony findings. IMPRESSION: No acute findings. Dictated by: Trey Carbajal MD 02/09/2020 15:21 Trey Carbajal MD in [place] 02/09/2020 15:21
--- NOTE | 2020-02-09 13:49 | HMH.EDGENADL ---
ED Disposition Clinical Impression: Pleurisy Disposition: Home, Self-Care Condition on Discharge: Good Additional Instructions: Return for worsening chest pain shortness of air or any other concerns within the next 8 hours otherwise follow-up with your primary care physician within the next 1 to 2 days Prescriptions: Diclofenac Potassium [Diclofenac 50mg Tab] 50 mg PO BID 10 Days #20 tab Transmission Status: Pending to [id number] - Critical Care Critical Care Time: No Attestation: On , the high probability of a clinically significant, sudden or life threatening deterioration of the following system(s) required my full and direct attention, intervention and personal management. The time I documented below is in addition to time spent performing reported procedures but includes the following listed in this critical care notation. Medical Decision Making - Medical Records Medical records reviewed: Yes: I reviewed the patient's medical records. - Sea Inquiry Pt receiving controlled substance: No Vital Signs: 02/09/20 13:44 02/09/20 14:08 02/09/20 15:00 Temperature 98.2 F Temperature Source Oral Pulse Rate [Right Radial] 75 68 60 Respiratory Rate 16 18 Blood Pressure [Right Arm] 159/78 H 168/92 H 148/88 H Blood Pressure Mean [Right Arm] 105 117 108 Blood Pressure Source [Right Arm] Automatic Cuff Automatic Cuff Automatic Cuff Blood Pressure Position [Right Arm] Sitting Sitting Sitting 02 Sat by Pulse Oximetry 98 97 98 Oxygen Delivery Method Room Air Room Air Room Air 02/09/20 15:32 02/09/20 16:24 Temperature Temperature Source Pulse Rate [Right Radial] 63 61 Respiratory Rate 19 Blood Pressure [Right Arm] 148/78 H 162/76 H Blood Pressure Mean [Right Arm] 101 104 Blood Pressure Source [Right Arm] Automatic Cuff Blood Pressure Position [Right Arm] Sitting 02 Sat by Pulse Oximetry 99 97 Oxygen Delivery Method Room Air - Lab Data Lab Results 02/09/20 13:50: WBC 9.9, RBC 5.07, Hgb 14.9, Hct 44.4, MCV 87.5, MCH 29.5, MCHC 33.6, RDW 13.8, Plt Count 197, MPV 9.4, Neut % (Auto) 59.0, Lymph % (Auto) 33.8, Bowman % (Auto) 5.4, Eos % (Auto) 1.1, Baso % (Auto) 0.7, Neut # (Auto) 5.8, Lymph # (Auto) 3.4, Bowman # (Auto) 0.5, Eos # (Auto) 0.1, Baso # (Auto) 0.1 02/09/20 13:50: D-Dimer 0.37 02/09/20 13:50: Troponin I < 0.01, Lipase 114 02/09/20 13:50: Sodium 140, Potassium 3.4 L, Chloride 103, Carbon Dioxide 30, Anion Gap 10.4, BUN 14, Creatinine 1.00, Estimated Creat Clear 58, Estimated GFR 55 L, Est GFR ( Amer) 67, Glucose 113 H, Calcium 10.0, Total Bilirubin 0.5, Direct Bilirubin 0.0, Conjugated Bilirubin 0.0, Indirect Bilirubin 0.5, Unconjugated Bilirubin 0.5, AST 26, ALT 12, Alkaline Phosphatase 94, Total Protein 8.0, Albumin 4.6 02/09/20 17:05: Troponin I < 0.01 Result diagrams: 02/09/20 13:50 02/09/20 13:50 Orders (Tests/Meds): ED MEDICATIONS Discontinued Medications Generic Name Dose Route Start Last Admin Trade Name Freq PRN Reason Stop Dose Admin Acetaminophen 650 mg 02/09/20 17:09 Acetaminophen 325mg Tab PO 03/10/20 17:08 Q4HP PRN As Needed for Fever or Pain Al Hydrox/Mg Hydrox/Simethicone 30 ml 02/09/20 17:09 Aluminum & Magnesium Hydroxide 30ml Udc PO 03/10/20 17:08 QIDP PRN Dyspepsia Sodium Chloride 1,000 mls @ 50 mls/hr 02/09/20 17:15 Sod Chlor 0.9% 1000ml Bag IV 03/10/20 17:14 .Q20H JENA Ketorolac Tromethamine 30 mg 02/09/20 16:44 02/09/20 16:54 Ketorolac 30mg/Ml Vial IV 02/09/20 16:45 30 mg ONCE ONE Administration ORDERS Category Date Time Status Troponin I Q3H Lab 02/09/20 20:00 Ordered Medical Decision Narrative: 64-year-old female with chest pain as above. It is atypical for cardiac and her heart score is 2. EKG initially unremarkable. Troponin and labs have been ordered. Atypical for pulmonary embolism, D-dimer was ordered. Atypical for aortic dissection. Plan to reassess pend
[2020-02-09 14:05] LABS: Chloride 103 mmol/L (98-107); Potassium 3.4 mmoL/L (3.5-5.1); Sodium 140 mmol/L (136-145)
[2020-02-09 14:08] VITALS: BP 168/92; PULSE 68; O2SAT 97
[2020-02-09 14:08] LABS: Alanine Aminotransferase 12 U/L (12-78); Albumin Level 4.6 g/dl (3.5-5.0); Alkaline Phosphatase 94 U/L (38-126); Anion Gap 10.4 mEq/L (5-15); Aspartate Amino Transferase 26 U/L (14-36); Bilirubin,Indirect 0.5 mg/dL (0.0-0.9); Bilirubin,Total 0.5 mg/dl (0.2-1.3); Bilirubin,Unconjugated 0.5 mg/dL (0.0-1.1); Blood Urea Nitrogen 14 mg/dl (7-17); Carbon Dioxide 30 mmol/L (22.0-30.0); Creatinine Clearance Estimated 58 mL/min (50-200); Estimated Glomerular Filt Rate 55 ml/min (>60); GFR (African American) 67 ML/MIN (>60); Glucose 113 mg/dl (74-100); Lipase 114 U/L (23-300)
[2020-02-09 14:14] LABS: D-Dimer 0.37 ug/mL (0.15-8.0)
[2020-02-09 14:20] LABS: Basophils # 0.1 K/mm3 (0-0.2); Basophils % 0.7 % (0.1-2.0); Eosinophils # 0.1 K/mm3 (0.0-0.4); Eosinophils % 1.1 % (0.1-12.0); Hematocrit 44.4 % (37.0-47.0); Hemoglobin 14.9 g/dL (12.2-16.2); Lymphocytes # 3.4 K/mm3 (0.7-4.5); Lymphocytes % 33.8 % (10-50); Mean Corpuscular HGB Conc 33.6 g/dL (31.8-35.4); Mean Corpuscular Hemoglobin 29.5 pg (27.0-31.2); Mean Corpuscular Volume 87.5 fl (81-99); Mean Platelet Volume 9.4 fl (7.4-10.4); Monocytes # 0.5 K/mm3 (0.1-1.0); Monocytes % 5.4 % (1.7-9.3); Neutrophils # 5.8 K/mm3 (1.8-7.8); Platelet Count 197 K/mm3 (142-424); Red Blood Count 5.07 M/mm3 (4.20-5.40); Red Cell Distribution Width 13.8 % (11.5-17.5); White Blood Count 9.9 K/mm3 (4.8-10.8)
[2020-02-09 14:23] LABS: Troponin I < 0.01 ng/ml (0.00-0.034)
--- NOTE | 2020-02-09 14:38 | PC.NURSE ---
rad at BS for portable xray
[2020-02-09 15:00] VITALS: BP 148/88; PULSE 60; RESP 18; O2SAT 98
[2020-02-09 15:32] VITALS: BP 148/78; PULSE 63; RESP 19; O2SAT 99
[2020-02-09 16:24] VITALS: BP 162/76; PULSE 61; O2SAT 97
--- NOTE | 2020-02-09 17:21 | PC.NURSE ---
Pt sitting up eating at this time.
[2020-02-09 17:45] LABS: Troponin I < 0.01 ng/ml (0.00-0.034)
[2020-02-09 18:20] VITALS: BP 167/89; PULSE 70; RESP 20; TEMP 36.8; O2SAT 98
== END 2020-02-09 18:20 | disposition home or self-care (01) ==
PROVIDERS: Emergency Provider Emergency Medicine; PCP Internal Medicine Adolescent Medicine
DX: R09.1 Pleurisy (principal); F41.8 Other specified anxiety disorders; K21.9 Gastro-esophageal reflux disease without esophagitis; I10 Essential (primary) hypertension; Z88.5 Allergy status to narcotic agent; Z90.710 Acquired absence of both cervix and uterus; Z79.899 Other long term (current) drug therapy
CPT/HCPCS: 36415; 71045; 80048; 80076; 83690; 84484; 85025; 85378; 93005; 96374; 99283

== ENCOUNTER → 2020-03-28 12:45 | Outpatient (CLI) | payer MEDICARE, MEDICAID, SELFPAY | PROVIDERS: PCP Internal Medicine Adolescent Medicine; Visit Provider Nurse Practitioner Family | DX: Z20.822 Contact with and (suspected) exposure to COVID-19 (principal); U07.1 COVID-19 | CPT/HCPCS: U0003 ==

== ENCOUNTER 2020-03-29 12:55 | Outpatient (RCR) | payer MEDICARE, MEDICAID, SELFPAY ==
--- NOTE | 2020-03-29 13:43 | HMH.PTOPEV ---
PT Outpatient Evaluation Rehab PT Outpatient Evaluation Start: 03/29/20 13:29 Freq: Status: Active Protocol: Document 03/29/20 13:30 KELLEYSY (Rec: 03/29/20 13:43 KATELYNN [id number]) Electronically Signed By Estevan Hook, PT 03/29/20 13:30 Outpatient Therapy Subjective History Subjective History Patient is a 64 year old female presenting to outpatient PT with reports of acute exacerbation of chronic LBP starting approx 2 week ago . Patient reports inc symptoms since increasing exercise levels at home. Patient reports that she received an injection approx 2 weeks ago that has provided minimal relief. Comorbidities include hx of MS and hysterectomy. Chief Complaint Pain,Stiff Symptom Type Ache,Dull Symptoms Relieved By Rest/Positioning,Heat,OTC Meds Symptoms Aggravated By Standing,Bending/Stooping, Physical Activity,Walking, Lifting Prior Functional Limitations Standing,Walking Current Functional Limitations Lifting,Housework,Standing, Squatting,Recreation Activity, Walking,Bending/Stooping Symptom Description Constant but Variable Level of pain today (0-10) 5 Pain scale - at its best (0-10) 3 Pain scale - at its worst (0-10) 8 Lumbopelvic Eval Posture Thoracic Spine Posture Standing Position Increased Kyphosis Lumbar Spine Posture Standing Position Neutral Assistive device Assistive Devices None / NA Palapation tenderness bilateral lumbar spinal tenderness Yes: L3-S1 3/4 buttock tenderness Yes: L>R 3/4 Lumbar/Sacral Palpation Findings Tenderness Lumbar/Sacral Palpation Overall Comment L SIJ 3/4 Accessory Movement L3 bilateral L4 bilateral L5 bilateral S1 bilateral Range of Motion Lumbar Spine Active Flexion Range of WNL Motion (degrees) Lumbar Spine Active Extension Range of WNL Motion (degrees) Left Lumbar Spine Lateral Flexion Active 22 Range of Motion (degrees) Right Lumbar Spine Lateral Flexion 18 Active Range of Motion (degrees) Manual Muscle Test Bilateral Knee Extension Strength Grade 4 Good Knee Flexion Strength Grade 4 Good Hip Flexion Strength Grade 4- Good- Extensor Hallucis Longus Strength Grade
== END 2020-03-29 12:59 | disposition home or self-care (01) ==
LOC: PT 12:55
PROVIDERS: PCP Internal Medicine Adolescent Medicine; Visit Provider Nurse Practitioner Family
DX: M54.5 Low back pain (principal)
CPT/HCPCS: 97010; 97014; 97163; G0283

== ENCOUNTER → 2020-04-24 13:26 | Outpatient (CLI) | payer MEDICARE, MEDICAID, SELFPAY ==
--- NOTE | 2020-04-24 13:32 | XR_ITS ---
PROCEDURE: XR HIP LT 2-3V W/PELVIS CLINICAL INDICATION: LT HIP PAIN COMPARISON: No exams were available for comparison FINDINGS: No fracture or dislocation. No lytic or blastic change. The joint spaces are well preserved. No significant arthritic change. IMPRESSION: No acute findings. Dictated by: Trey Carbajal MD 04/24/2020 14:35 Trey Carbajal MD in [place] 04/24/2020 14:35
== END ==
PROVIDERS: PCP Nurse Practitioner Family; Visit Provider Nurse Practitioner Family
DX: M25.552 Pain in left hip (principal)
CPT/HCPCS: 73502

== ENCOUNTER → 2020-06-12 12:25 | Outpatient (CLI) | payer MEDICARE, MEDICAID, SELFPAY ==
[2020-06-12 13:03] LABS: Basophils # 0.1 K/mm3 (0-0.2); Basophils % 0.7 % (0.1-2.0); Eosinophils # 0.2 K/mm3 (0.0-0.4); Eosinophils % 1.6 % (0.1-12.0); Hematocrit 43.2 % (37.0-47.0); Hemoglobin 14.1 g/dL (12.2-16.2); Lymphocytes # 3.4 K/mm3 (0.7-4.5); Lymphocytes % 36.4 % (10-50); Mean Corpuscular HGB Conc 32.6 g/dL (31.8-35.4); Mean Corpuscular Hemoglobin 29.2 pg (27.0-31.2); Mean Corpuscular Volume 89.4 fl (81-99); Mean Platelet Volume 8.8 fl (7.4-10.4); Monocytes # 0.5 K/mm3 (0.1-1.0); Monocytes % 5.1 % (1.7-9.3); Neutrophils # 5.3 K/mm3 (1.8-7.8); Neutrophils % 56.2 % (37.0-80.0); Platelet Count 220 K/mm3 (142-424); Red Blood Count 4.83 M/mm3 (4.20-5.40); Red Cell Distribution Width 13.1 % (11.5-17.5); White Blood Count 9.5 K/mm3 (4.8-10.8)
[2020-06-12 13:40] LABS: Alanine Aminotransferase 13 U/L (12-78); Albumin Level 4.6 g/dl (3.5-5.0); Albumin/Globulin Ratio 1.6 (1.1-1.8); Alkaline Phosphatase 82 U/L (38-126); Anion Gap 12.5 mEq/L (5-15); Aspartate Amino Transferase 26 U/L (14-36); Bilirubin,Total 0.5 mg/dl (0.2-1.3); Blood Urea Nitrogen 14 mg/dl (7-17); Carbon Dioxide 28 mmol/L (22.0-30.0); Chloride 105 mmol/L (98-107); Estimated Glomerular Filt Rate 63 ml/min (>60); GFR (African American) 76 ML/MIN (>60); Globulin 2.9 g/dL (1.3-3.2); Glucose 96 mg/dl (74-100); Potassium 4.5 mmoL/L (3.5-5.1); Sodium 141 mmol/L (136-145); Total Protein,Serum 7.5 g/dl (6.3-8.2)
[2020-06-12 14:12] LABS: Thyroid Stimulating Hormone 1.16 uIU/mL (0.465-4.68)
[2020-06-12 14:56] LABS: Folate 8.14 ng/mL
== END ==
PROVIDERS: Visit Provider Specialist
DX: R41.3 Other amnesia (principal)
CPT/HCPCS: 36415; 80053; 82746; 84443; 85025

== ENCOUNTER → 2020-06-19 12:49 | Outpatient (CLI) | payer MEDICARE, MEDICAID, SELFPAY ==
--- NOTE | 2020-06-19 12:49 | MR_ITS ---
PROCEDURE: MR HEAD/BRAIN WO CON CLINICAL INDICATION: encephalopathy Hx MS with forgetfulness [id number]. Vision has decreased. Prior CT 08/26/18. Prior MR 04/16/17. COMPARISON: MR BRAINWW MR head/brain wo/w con from 04/16/2017 TECHNIQUE: Routine multiplanar multi echo sequences are performed without gadolinium enhancement. FINDINGS: No midline shift, mass effect, intracranial hemorrhage, or hydrocephalus is evident. The cerebellopontine angles, cerebellum, brainstem, and mid brain have an unremarkable appearance. There is generalized atrophy with scattered T2 white matter hyperintensities with increased T2 signal in the periventricular region. In the frontal, parietal, and occipital lobes. Some of these T2 hyperintensities are slightly more prominent. There is no evidence of acute infarction. The corpus callosum has an unremarkable appearance. The pituitary, optic chiasm, and craniocervical junction are unremarkable. No mastoid effusion or sinus air-fluid level. IMPRESSION: 1. No acute intracranial findings. 2. Scattered periventricular and subcortical T2 white matter hyperintensities which may represent ischemic gliotic change from microvascular disease with few foci slightly more prominent compared to the previous exam. No evidence of acute infarction. Migraine headache and demyelinating process would be included in the differential diagnosis. Dictated by: Trey Carbajal MD 06/20/2020 15:37 Trey Carbajal MD in [place] 06/20/2020 15:37
== END ==
PROVIDERS: PCP Nurse Practitioner Family; Visit Provider Specialist
DX: R41.3 Other amnesia (principal)
CPT/HCPCS: 70551; 94762

== ENCOUNTER → 2020-06-28 13:52 | Outpatient (CLI) | payer MEDICARE, MEDICAID, SELFPAY ==
[2020-06-28 15:40] LABS: Vitamin B12 478 pg/mL (239-931)
== END ==
PROVIDERS: Visit Provider Specialist
DX: R41.3 Other amnesia (principal)
CPT/HCPCS: 36415; 82607

== ENCOUNTER → 2020-08-16 12:56 | Outpatient (CLI) | payer MEDICARE, MEDICAID, SELFPAY | PROVIDERS: Visit Provider Nurse Practitioner Family | DX: G36.0 Neuromyelitis optica [Devic] (principal) | CPT/HCPCS: 36415 ==

== ENCOUNTER → 2020-09-13 12:43 | Outpatient (CLI) | payer MEDICARE, MEDICAID, SELFPAY ==
--- NOTE | 2020-09-13 | CA_ITS ---
APPROVED REPORT Talent Development Specialist: PACO Laterality: Bilateral Study Quality: Adequate Indications: Visual loss Risk Factors M/S, previous abnormal calcifications on c-spine x-ray Doppler Spectral Velocity Analysis ECA (R) 120.00/9.40 cm/s ECA (L) 97.60/9.00 cm/s dICA (R) 69.30/23.10 cm/s dICA (L) 108.50/41.20 cm/s Cedrick (R) 66.80/21.80 cm/s Cedrick (L) 81.50/32.70 cm/s pICA (R) 60.40/20.50 cm/s pICA (L) 68.10/25.70 cm/s dCCA (R) 59.70/16.70 cm/s dCCA (L) 59.10/17.30 cm/s pCCA (R) 81.60/12.70 cm/s pCCA (L) 79.60/15.40 cm/s Vert (R) 37.20/13.50 cm/s Vert (L) 28.30/11.80 cm/s ICA/CCA 1.16 ICA/CCA 1.84 Findings Study suggests 20-49% stenosis (lower end of scale) in the bilateral internal carotid arteries. Duplex evaluation demonstrates antegrade flow of the bilateral vertebral arteries. Incidental thyroid nodule noted in transverse on the right lobe. Conclusion Study suggests 20-49% stenosis (lower end of scale) in the bilateral internal carotid arteries. Duplex evaluation demonstrates antegrade flow of the bilateral vertebral arteries. Incidental thyroid nodule noted in transverse on the right lobe. Electronically signed by : Mary Li, 09/15/2020 11:51:37
--- NOTE | 2020-09-13 12:43 | MR_ITS ---
PROCEDURE INFORMATION: Exam: MR Orbit Without Contrast Exam date and time: 09/13/2020 12:43 PM Age: 64 years old Clinical indication: Visual changes or disturbances; Transient loss of vision; Additional info: Ms, visual disturbances TECHNIQUE: Imaging protocol: MR Orbit was performed without intravenous contrast. COMPARISON: MR HEAD/BRAIN WO CON 06/19/2020 1:01 PM FINDINGS: Orbital cavity: Orbits are normal. Globes are unremarkable. Paranasal sinuses: Minimal bilateral maxillary sinus disease. Brain: T2/FLAIR hyperintense signal within the periventricular and subcortical white matter bilaterally, compatible with chronic small vessel ischemic changes, demyelination, or gliosis. There is parenchymal atrophy. No mass, hemorrhage, or acute infarction. Soft tissues: Unremarkable. IMPRESSION: No acute abnormality.
== END ==
PROVIDERS: PCP Internal Medicine Adolescent Medicine; Visit Provider Specialist
DX: H46.9 Unspecified optic neuritis (principal); H53.9 Unspecified visual disturbance; I65.23 Occlusion and stenosis of bilateral carotid arteries
CPT/HCPCS: 70540; 93880

== ENCOUNTER → 2020-11-10 12:35 | Outpatient (CLI) | payer MEDICARE, MEDICAID, SELFPAY ==
[2020-11-10 13:26] LABS: Basophils # 0.1 K/mm3 (0-0.2); Basophils % 0.8 % (0.1-2.0); Eosinophils # 0.2 K/mm3 (0.0-0.4); Eosinophils % 1.4 % (0.1-12.0); Hematocrit 43.9 % (37.0-47.0); Hemoglobin 14.2 g/dL (12.2-16.2); Lymphocytes # 3.4 K/mm3 (0.7-4.5); Lymphocytes % 30.9 % (10-50); Mean Corpuscular HGB Conc 32.3 g/dL (31.8-35.4); Mean Corpuscular Hemoglobin 29.4 pg (27.0-31.2); Mean Corpuscular Volume 91.1 fl (81-99); Mean Platelet Volume 8.9 fl (7.4-10.4); Monocytes # 0.5 K/mm3 (0.1-1.0); Monocytes % 4.5 % (1.7-9.3); Neutrophils # 6.9 K/mm3 (1.8-7.8); Neutrophils % 62.4 % (37.0-80.0); Platelet Count 222 K/mm3 (142-424); Red Blood Count 4.82 M/mm3 (4.20-5.40); Red Cell Distribution Width 12.4 % (11.5-17.5)
[2020-11-10 14:13] LABS: Erythrocyte Sedimentation Rate 9 mm/hr (0-30)
[2020-11-10 14:18] LABS: Chloride 103 mmol/L (98-107)
[2020-11-10 14:19] LABS: Potassium 4.6 mmoL/L (3.5-5.1); Sodium 141 mmol/L (136-145)
[2020-11-10 14:22] LABS: Alanine Aminotransferase 10 U/L (12-78); Albumin Level 4.4 g/dl (3.5-5.0); Albumin/Globulin Ratio 1.5 (1.1-1.8); Alkaline Phosphatase 95 U/L (38-126); Anion Gap 13.6 mEq/L (5-15); Aspartate Amino Transferase 25 U/L (14-36); Bilirubin,Total 0.4 mg/dl (0.2-1.3); Blood Urea Nitrogen 18 mg/dl (7-17); Calcium 9.5 mg/dl (8.4-10.2); Carbon Dioxide 29 mmol/L (22.0-30.0); Creatine Kinase 58 U/L (30-135); Estimated Glomerular Filt Rate 72 ml/min (>60); GFR (African American) 87 ML/MIN (>60); Globulin 2.9 g/dL (1.3-3.2); Glucose 97 mg/dl (74-100); Total Protein,Serum 7.3 g/dl (6.3-8.2)
[2020-11-10 14:35] LABS: Troponin I < 0.01 ng/ml (0.00-0.034)
== END ==
PROVIDERS: Visit Provider Internal Medicine Adolescent Medicine
DX: I20.8 Other forms of angina pectoris (principal)
CPT/HCPCS: 36415; 80053; 82550; 84484; 85025; 85651

== ENCOUNTER → 2020-11-28 10:07 | Outpatient (POV) | payer MEDICARE, MEDICAID, SELFPAY | PROVIDERS: Visit Provider Dermatology | DX: Z00.00 Encounter for general adult medical examination without abnormal findings (principal) ==

== ENCOUNTER 2020-12-22 09:00 | Outpatient (RCR) | payer MEDICARE, MEDICAID, SELFPAY ==
--- NOTE | 2020-11-07 11:25 | HMH.OTOPEV ---
OT Inpatient Evaluation Rehab OT Outpatient Eval Start: 11/07/20 11:10 Freq: Status: Active Protocol: Document 11/07/20 11:11 RMARSHALL (Rec: 11/07/20 11:25 [facility] [id number]) Electronically Signed By Bhavin Anders OT 11/07/20 11:11 Outpatient Therapy Subjective History Subjective History Pt is a 64 year old female who reports to therapy for initial evaluation to left shoulder. Pt reports her left shoulder has been hurting her for months , but does not recall a specific injury causing pain. Pt does demonstrate with a slight decreased in AROM and strength at left shoulder. Pt has a past medical history of MS. Pt will continue to be seen in order to address all deficits . Chief Complaint Pain,Weakness Symptom Type Ache,Throb,Sharp,Dull Symptoms Relieved By Rest/Positioning,OTC Meds Symptoms Aggravated By Physical Activity,Lifting Prior Functional Limitations None Current Functional Limitations Reaching,Lifting,Housework, Sleeping,Recreation Activity Symptom Description Intermittent,Activity Dependent Level of pain today (0-10) 4 Pain scale - at its best (0-10) 3 Pain scale - at its worst (0-10) 10 Shoulder/Elbow Eval Shoulder Objective Measurements Shoulder ROM Left Shoulder Abduction Active Range of 120 degrees Motion (degrees) Shoulder Flexion Active Range of Motion 135 degrees (degrees) Query Text: Shoulder External Rotation Active Range 65 degrees of Motion (degrees) Shoulder Internal Rotation Active Range 25 degrees of Motion (degrees) Shoulder MMT Bilateral Shoulder Abduction Strength Grade 3- Fair- Shoulder Extension Strength Grade 3- Fair- Shoulder Flexion Strength Grade 3- Fair- Shoulder External Rotation Strength 3- Fair- Grade Shoulder Internal Rotation Strength 3- Fair- Grade Shoulder Strength Patient Testing Sitting Position Shoulder Special Tests impingement sign present shoulder exam left standard Shoulder Empty Can (Supraspinatus) Test Positive Left Shoulder Sandoval-Joshua Impingement Positive Left Test Shoulder Neer Impingement Test Positive Left Shoulder [place] Test Positive L
--- NOTE | 2020-12-05 09:34 | HMH.RHREAS ---
Rehab Reassessment Rehab OP Re-assessment Start: 12/05/20 09:28 Freq: Status: Active Protocol: Document 12/05/20 09:29 SUSANNAH (Rec: 12/05/20 09:34 SUSANNAH [id number]) Electronically Signed By Bhavin Anders OT 12/05/20 09:29 Rehab Re-assessment Subjective Subjective I think it's better, but I'm still having pain. Objective Objective Notes Pt continues to be seen twice a week in order to address left shoulder deficits. Each session pt engages in L shoulder AROM/AAROM/ strengthening exercises. Pt also receives modalities in order to decrease pain/ inflammation. Assessment Progress Assessment Progressing as Expected Assessment Notes Pt demonstrates great improvement with AROM at left shoulder since initial evaluation. However, pt continues to complain of pain during daily activities that radiates all the way down the arm into the hand. She rates her worst pain now at a 4/10, which is an improvement. ER/ IR ar the two ways she has the most pain. Therapist recommends to continue therapy at this time, but to return to doctor about pain and further recommendations. Current AROM/MMT L shoulder Flex: 150 degrees; 4- Abd: 135 degrees; 4- ER: 90 degrees; 4- IR: 65 degrees; 4- Patient goals met STG 1-5 Goals Not Met See below Revised Goals LTG 1-5 Plan Plan Continue therapy at this time in order to continue improving on AROM and strength at left shoulder. Return to doctor due to continued pain for further evaluation. Frequency of Therapy 2x's a week Duration of therapy 4 more weeks Time and Billing Re-Eval Time 10 Re-Eval Billing Units 1 PHYSICIAN CERTIFICAT
== END 2020-12-22 09:05 | disposition home or self-care (01) ==
LOC: OT 09:00
PROVIDERS: PCP Internal Medicine Adolescent Medicine; Visit Provider Internal Medicine Adolescent Medicine
DX: M25.512 Pain in left shoulder (principal)
CPT/HCPCS: 97014; 97035; 97110; 97140; 97164; 97166; 97530; G0283

== ENCOUNTER → 2021-01-08 12:59 | Outpatient (CLI) | payer MEDICARE, MEDICAID, SELFPAY ==
--- NOTE | 2021-01-08 13:04 | XR_ITS ---
PROCEDURE: XR SHOULDER LT MIN 2V CLINICAL INDICATION: left shoulder pain COMPARISON: No exams were available for comparison FINDINGS: No fracture or dislocation. No lytic or blastic change. There is normal mineralization. Mild osteoarthritic changes are present at the glenohumeral joint. No significant subacromial stenosis. Other findings:None. IMPRESSION: Mild osteoarthritis Dictated by: Trey Carbajal MD 01/08/2021 16:04 Trey Carbajal MD in [facility] 01/08/2021 16:04
== END ==
PROVIDERS: PCP Internal Medicine Adolescent Medicine; Visit Provider Orthopaedic Surgery
DX: M25.512 Pain in left shoulder (principal)
CPT/HCPCS: 73030

== ENCOUNTER → 2021-01-17 10:56 | Outpatient (CLI) | payer MEDICARE, MEDICAID, SELFPAY ==
--- NOTE | 2021-01-17 10:57 | MR_ITS ---
PROCEDURE INFORMATION: Exam: MR Left Upper Extremity Joint Without Contrast; Shoulder Exam date and time: 01/17/2021 10:57 AM Age: 65 years old Clinical indication: Patient HX: PT C/O left shoulder pain wtih limited rom, evaluate for rotator cuff tear. Prior lt shoulde xray done 01/08/2021; Additional info: Left shoulder pain; Evaluate for rotator cuff tear TECHNIQUE: Imaging protocol: MR of the Left upper extremity without contrast. Exam focused on the shoulder. COMPARISON: CR XR SHOULDER LT MIN 2V 01/08/2021 1:14 PM FINDINGS: Bones and cartilage: The undersurface of the acromion is downturned, consistent with a type III acromion. This configuration can contribute to rotator cuff impingement. There is no acute fracture or dislocation. No aggressive bone lesions are present. Joint spaces: There is mild primary osteoarthritis of the acromioclavicular joint. Hypertrophic bone at the acromioclavicular joint abuts the supraspinatus musculotendinous junction. A mild effusion involves the glenohumeral joint. Glenoid labrum: A nondisplaced tear involves the posterior inferior labrum with an intact periosteal sleeve (reverse Perthes lesion), series 3/image 12. Bursae: A mild amount of fluid is present in the subacromial-subdeltoid bursa. Supraspinatus tendon: Mild tendinosis involves the supraspinatus tendon. Infraspinatus tendon: Mild tendinosis involves the infraspinatus tendon. Subscapularis tendon: No tear or significant tendinosis involves the subscapularis tendon. Teres minor tendon: No tear or significant tendinosis involves the teres minor tendon. Tendon of biceps brachii: Mild tendinosis involves the intra-articular portion of the long head of the biceps tendon. Glenohumeral ligaments: Unremarkable. Muscles: The rotator cuff musculature demonstrates no significant edema or atrophy. Soft tissues: Unremarkable. IMPRESSION: 1. 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 2. Nondisplaced posterior inferior labral tear with intact periosteal sleeve (reverse Perthes lesion). 3. Mild tendinosis of the supraspinatus tendon, infraspinatus tendon, and long head of the biceps tendon. 4. Mild subacromial-subdeltoid bursitis.
== END ==
PROVIDERS: PCP Internal Medicine Adolescent Medicine; Visit Provider Orthopaedic Surgery
DX: G89.29 Other chronic pain (principal); M25.512 Pain in left shoulder
CPT/HCPCS: 73221

== ENCOUNTER 2021-03-07 16:27 | Outpatient (RCR) | payer MEDICARE, MEDICAID, SELFPAY | END 2021-03-07 17:24 | disposition home or self-care (01) | LOC: OT 16:27 | PROVIDERS: Visit Provider Orthopaedic Surgery | DX: G56.03 Carpal tunnel syndrome, bilateral upper limbs (principal) | CPT/HCPCS: 97763 ==

== ENCOUNTER 2021-05-23 17:31 | Emergency (ER) | payer MEDICARE, MEDICAID, SELFPAY ==
--- NOTE | 2021-05-23 19:02 | HMH.EDUTC ---
[facility] [place] Impression: Pharyngitis Qualifiers: Pharyngitis/tonsillitis etiology: unspecified etiology Qualified Code(s): J02.9 - Acute pharyngitis, unspecified Disposition: Home, Self-Care Condition on Discharge: Good Instructions: DI for Strep Throat Additional Instructions: Drink plenty of fluids. Take tylenol or ibuprofen for pain or fever. Take the medications as directed. Follow up with your regular doctor. GO TO THE ER FOR ANY WORSENING SYMPTOMS Prescriptions: Amoxicillin [Amoxicillin 500mg Tab] 500 mg PO TID 10 Days #30 tab Transmission Status[id number] predniSONE [Deltasone 10mg tablet] 10 mg PO BID 3 Days #6 tab Transmission Status: Received by [id number] guaiFENesin [Mucinex 600mg tablet] 1 - 2 tab PO BIDP PRN #30 tab PRN Reason: Congestion Transmission Status: [id number] Referrals: Tree Clemons MD [Primary Care Provider] - Forms: Work/School Release Time of Disposition: 19:34 Medical Decision Making - Medical Records Medical records reviewed: No: I reviewed the patient's medical records. - Sea Inquiry Pt receiving controlled substance: No Vital Signs: 05/23/21 19:03 05/23/21 19:41 Temperature 98.5 F 98.5 F Temperature Source Oral Pulse Rate 79 Pulse Rate [Left] 79 Respiratory Rate 19 19 Blood Pressure 168/96 H Blood Pressure [Right Arm] 168/96 H Blood Pressure Mean [Right Arm] 120 02 Sat by Pulse Oximetry 94 L - Lab Data Lab results reviewed: Yes: I reviewed the patient's lab results. Lab Results 05/23/21 19:02: Influenza Type A Ag Negative, Influenza Type B Ag Negative 05/23/21 19:03: Group A Strep Rapid Negative Orders (Tests/Meds): ORDERS Category Date Time Status Strep Screen Confirmation Stat Micro 05/23/21 19:03 [place] [facility] [place] - General Stated complaint: SORE THROAT Time Seen by Provider: 05/23/21 19:02 - History of Present Illness Provider Complaint: She c/o sore throat for the past 2 days. - Related Data Home Medications Medication Instructions Recorded Confirmed calcium carbonate 600 mg calcium 600 mg PO DAILY 04/12/21 03/16/22 (1,500 mg) tablet magnesium oxide 400 mg (241.3 mg 400 mg PO DAILY 08/14/20 05/09/21 magnesium) tablet naproxen sodium 220 mg capsule 220 mg PO BID PRN 11/13/20 05/09/21 omeprazole 40 mg capsule,delayed 40 mg PO DAILY cap 04/25/21 05/09/21 release Previous Rx's Medication Instructions Recorded Amoxicillin [Amoxicillin 500mg Tab] 500 mg PO TID 10 Days #30 tab 05/23/21 guaiFENesin [Mucinex 600mg tablet] 1 - 2 tab PO BIDP PRN #30 tab 05/23/21 predniSONE [Deltasone 10mg tablet] 10 mg PO BID 3 Days #6 tab 05/23/21 Allergies Allergy/AdvReac Type Severity Reaction Status Date / Time gabapentin [GABAPENTIN] Allergy Severe SWELLING Verified 05/09/21 14:09 THROAT meloxicam [MELOXICAM] Allergy Intermediate THROART Verified 05/09/21 14:09 SWELLING codeine [CODEINE] Allergy Unknown NA-NAUSEA/V Verified 05/09/21 14:09 OMITING hydrocodone [HYDROCODONE] Allergy Unknown ATAXIA Verified 05/09/21 14:09 morphine [MORPHINE] Allergy Unknown NA-NAUSEA/V Verified 05/09/21 14:09 OMITING [facility] History - Hepatitis A Screen Attestation statement:: This patient has been screened for Hepatitis A risk factors. I have reviewed the patient's past medical history: Yes Medical History: Reports:: Anxiety, Depression, Gastroesophageal Reflux Disease(GERD), Hypertension Other Medical History: Reports: Arthritis, Other Comment: Multiple sclerosis, depression, WESLEY Laterality Cases: Left: Breast Biopsy Other Surgeries: Yes: Colonoscopy, Hysterectomy-Total, Tubal Ligation, Other Amputation: No Fractures: No Comment: multiple sclerosis - Social History Smoking Status: Former smoker Tobacco Type: cigarettes # Packs/Day (cigarettes): 1 Alcohol Intake: never Alcohol Intake Frequency:: other Subs
[2021-05-23 19:03] VITALS: BP 168/96; PULSE 79; RESP 19; TEMP 36.9; O2SAT 94; BMI 21.0
[2021-05-23 19:21] LABS: UTC Influenza A Antigen Negative (Negative)
[2021-05-23 19:22] LABS: UTC Influenza B Antigen Negative (Negative)
[2021-05-23 19:28] LABS: Strep Scrn Group A (Rapid) Negative (Negative)
[2021-05-23 19:41] VITALS: BP 168/96; PULSE 79; RESP 19; TEMP 36.9
== END 2021-05-23 19:43 | disposition home or self-care (01) ==
PROVIDERS: Emergency Provider Nurse Practitioner Family; PCP Internal Medicine Adolescent Medicine
DX: J02.9 Acute pharyngitis, unspecified (principal); F41.8 Other specified anxiety disorders; K21.9 Gastro-esophageal reflux disease without esophagitis; I10 Essential (primary) hypertension; Z87.891 Personal history of nicotine dependence; Z79.899 Other long term (current) drug therapy
CPT/HCPCS: 87430; 87804; 99212; G0463

== ENCOUNTER → 2021-06-20 14:49 | Outpatient (CLI) | payer MEDICARE, MEDICAID, SELFPAY ==
[2021-06-20 16:23] LABS: Thyroid Stimulating Hormone 1.08 uIU/mL (0.465-4.68)
[2021-06-20 16:58] LABS: Vitamin B12 647 pg/mL (239-931)
[2021-06-20 16:59] LABS: Folate > 20.00 ng/mL
== END ==
PROVIDERS: Visit Provider Nurse Practitioner Family
DX: R20.0 Anesthesia of skin (principal); R20.2 Paresthesia of skin
CPT/HCPCS: 36415; 82607; 82746; 84443

== ENCOUNTER 2021-07-24 15:02 | Emergency (ER) | payer MEDICARE, MEDICAID, SELFPAY ==
[2021-07-24 15:03] VITALS: BP 163/79; PULSE 70; RESP 16; TEMP 36.6; O2SAT 98; BMI 21.6
--- NOTE | 2021-07-24 15:17 | PC.NURSE ---
finger cleaned and wet to dry bandage applied and pt applying pressure for bleeding control
[2021-07-24 15:39] VITALS: BP 179/93; PULSE 72; O2SAT 99
--- NOTE | 2021-07-24 16:05 | HMH.EDGENADL ---
ED Disposition Clinical Impression: Fingertip avulsion Qualifiers: Encounter type: initial encounter Qualified Code(s): S61.209A - Unspecified open wound of unspecified finger without damage to nail, initial encounter Disposition: Home, Self-Care Condition on Discharge: Good Additional Instructions: Remove bandage daily, very gently clean the fingertip without scrubbing. Reapply bandage. If bleeding occurs elevate your hand above your head and apply pressure for 10 minutes. Referrals: Tree Clemons MD [Primary Care Provider] - - Critical Care Critical Care Time: No Attestation: On 07/24/21, the high probability of a clinically significant, sudden or life threatening deterioration of the following system(s) required my full and direct attention, intervention and personal management. The time I documented below is in addition to time spent performing reported procedures but includes the following listed in this critical care notation. Medical Decision Making - Sea Inquiry Pt receiving controlled substance: No Vital Signs: 07/24/21 15:03 07/24/21 15:39 Temperature 98 F Temperature Source Oral Pulse Rate 72 Pulse Rate [Radial] 70 Respiratory Rate 16 Blood Pressure 179/93 H Blood Pressure [Right Arm] 163/79 H Blood Pressure Mean [Right Arm] 107 Blood Pressure Source Automatic Cuff Blood Pressure Position Sitting Blood Pressure Position [Right Arm] Sitting 02 Sat by Pulse Oximetry 98 99 Oxygen Delivery Method Room Air Room Air Orders (Tests/Meds): ED MEDICATIONS Discontinued Medications Generic Name Dose Route Start Last Admin Trade Name Freq PRN Reason Stop Dose Admin Bupivacaine HCl 50 mg 07/24/21 15:38 Bupivacaine 0.5% 30ml Vial SQ 07/24/21 15:39 ONCE ONE Medical Decision Narrative: Surgicel was applied. During her emergency department stay the bleeding stopped. A Tegaderm and Coban dressing will be applied. General Adult HPI - General Chief complaint: Wound/Laceration Stated complaint: finger laceration 07/24 Time Seen by Provider: 07/24/21 15:45 Mode of Arrival: Ambulatory Limitations: No Limitations Description of Symptoms (Recalled from ER Triage Doc. by RN): TO ED PER PVT CAR WITH C/O LAC TO LT MIDDLE FINGER WITH A POTATO SLICER. - History of Present Illness HPI narrative: An hour ago the patient accidentally cut off the tip of her left middle finger pad with a potato slicer. Unable to get it to stop bleeding. Up-to-date on tetanus immunization. No anticoagulation, except took an aspirin a couple of times this week. - Related Data Home Medications Medication Instructions Recorded Confirmed calcium carbonate 600 mg calcium 600 mg PO DAILY 06/05/20 06/20/21 (1,500 mg) tablet magnesium oxide 400 mg (241.3 mg 400 mg PO DAILY 08/14/20 06/20/21 magnesium) tablet naproxen sodium 220 mg capsule 220 mg PO BID PRN 11/13/20 06/20/21 omeprazole 40 mg capsule,delayed 40 mg PO DAILY cap 04/25/21 06/20/21 release folic acid 400 mcg tablet 0.4 mg PO DAILY 06/20/21 06/20/21 multivitamin 1 tab PO DAILY 06/20/21 06/20/21 Previous Rx's Medication Instructions Recorded guaiFENesin [Mucinex 600mg tablet] 1 - 2 tab PO BIDP PRN #30 tab 05/23/21 Allergies Allergy/AdvReac Type Severity Reaction Status Date / Time gabapentin [GABAPENTIN] Allergy Severe SWELLING Verified 06/20/21 14:10 THROAT meloxicam [MELOXICAM] Allergy Intermediate THROART Verified 06/20/21 14:10 SWELLING codeine [CODEINE] Allergy Unknown NA-NAUSEA/V Verified 06/20/21 14:10 OMITING hydrocodone [HYDROCODONE] Allergy Unknown ATAXIA Verified 06/20/21 14:10 morphine [MORPHINE] Allergy Unknown NA-NAUSEA/V Verified 06/20/21 14:10 OMITING [facility] History - Hepatitis A Screen Attestation statement:: This patient has been screened for Hepatitis A risk factors. I have reviewed the patient's past medical history: Yes Medical History: Reports:: Anxiety, De
--- NOTE | 2021-07-24 16:13 | PC.NURSE ---
MILES Wharton at
--- NOTE | 2021-07-24 16:25 | PC.NURSE ---
MILES Wharton at
[2021-07-24 17:03] VITALS: BP 132/85; PULSE 87; RESP 17; TEMP 36.7; O2SAT 100
== END 2021-07-24 17:04 | disposition home or self-care (01) ==
PROVIDERS: Emergency Provider Emergency Medicine; PCP Internal Medicine Adolescent Medicine
DX: S61.209A Unspecified open wound of unspecified finger without damage to nail, initial encounter (principal); Y93.G1 Activity, food preparation and clean up; Z88.5 Allergy status to narcotic agent; Z88.6 Allergy status to analgesic agent; Z88.8 Allergy status to other drugs, medicaments and biological substances; F41.9 Anxiety disorder, unspecified; F32.A Depression, unspecified; K21.9 Gastro-esophageal reflux disease without esophagitis; I10 Essential (primary) hypertension; M19.90 Unspecified osteoarthritis, unspecified site; G35 Multiple sclerosis; F15.11 Other stimulant abuse, in remission; Z87.891 Personal history of nicotine dependence
CPT/HCPCS: 96372; 99282

== ENCOUNTER 2021-07-26 10:04 | Emergency (ER) | payer MEDICARE, MEDICAID, SELFPAY ==
[2021-07-26 10:11] VITALS: BP 176/83; PULSE 74; RESP 17; TEMP 36.8; O2SAT 98; BMI 21.6
--- NOTE | 2021-07-26 10:53 | HMH.EDGENADL ---
ED Disposition Clinical Impression: Laceration of left middle finger Qualifiers: Encounter type: initial encounter Damage to nail status: with damage Foreign body presence: without foreign body Qualified Code(s): S61.313A - Laceration without foreign body of left middle finger with damage to nail, initial encounter Disposition: Home, Self-Care Condition on Discharge: Good Instructions: DI for Laceration Repair -- Finger Referrals: Tree Clemons MD [Primary Care Provider] - - Critical Care Critical Care Time: No Attestation: On 07/26/21, the high probability of a clinically significant, sudden or life threatening deterioration of the following system(s) required my full and direct attention, intervention and personal management. The time I documented below is in addition to time spent performing reported procedures but includes the following listed in this critical care notation. Medical Decision Making - Medical Records Medical records reviewed: Yes: I reviewed the patient's medical records. - Sea Inquiry Pt receiving controlled substance: No Vital Signs: 07/26/21 10:11 Temperature 98.2 F Temperature Source Oral Pulse Rate [Left Radial] 74 Respiratory Rate 17 Blood Pressure [Right Arm] 176/83 H Blood Pressure Mean [Right Arm] 114 02 Sat by Pulse Oximetry 98 Oxygen Delivery Method Room Air - Reevaluation(s) Time: 11:24 Reevaluation #1: Patient tolerated procedure well. No rebleeding. Patient given wound care instructions. We did place sterile bandage. He is to follow-up with PCP in 48 hours. Given strict return precautions. Verbalized understanding. Medical Decision Narrative: 65-year-old female presented to the emergency department with bleeding to the left distal finger. The patient did have some skin removal after laceration last week. They did attempt to cauterize the finger, however it appears to continue bleeding. I do believe the patient will require some suture repair in order to ligate the bleed. General Adult HPI - General Chief complaint: Skin/Abscess/Foreign Body Stated complaint: AO 07/24 finger lac Time Seen by Provider: 07/26/21 10:20 Mode of Arrival: Ambulatory Limitations: No Limitations Description of Symptoms (Recalled from ER Triage Doc. by RN): pt to ed c/o left middle finger laceration. pt states she was seen in the ed on friday for a finger laceration and states it will not stop bleeding. pt denies taking any coagulants. - History of Present Illness HPI narrative: Is a 65-year-old female presenting with some bleeding to the left middle finger. The patient was seen few days ago for similar issue after she accidentally sliced off the very tip of her finger. She states that she is kept a bandage on it, however she got it wet today and it started bleeding again. She placed numerous Band-Aids on it but it continued to bleed through it. Patient states that she does not take any anticoagulation. She denies any new trauma. She is not having significant pain in the area just continued bleeding. No headache or change in vision. No focal weakness. No fevers or chills. - Related Data Home Medications Medication Instructions Recorded Confirmed calcium carbonate 600 mg calcium 600 mg PO DAILY 06/05/20 06/20/21 (1,500 mg) tablet magnesium oxide 400 mg (241.3 mg 400 mg PO DAILY 08/14/20 06/20/21 magnesium) tablet naproxen sodium 220 mg capsule 220 mg PO BID PRN 11/13/20 06/20/21 omeprazole 40 mg capsule,delayed 40 mg PO DAILY cap 04/25/21 06/20/21 release folic acid 400 mcg tablet 0.4 mg PO DAILY 06/20/21 06/20/21 multivitamin 1 tab PO DAILY 06/20/21 06/20/21 Previous Rx's Medication Instructions Recorded guaiFENesin [Mucinex 600mg tablet] 1 - 2 tab PO BIDP PRN #30 tab 05/23/21 Allergies Allergy/AdvReac Type Severity Reaction Status Date / Time gabapentin [GABAPENTIN] Allergy Severe SWELLING Verified 06/20/21 14:10 THROAT meloxicam [BAUTISTA
[2021-07-26 11:00] VITALS: BP 176/83; PULSE 74; RESP 17; TEMP 36.8; O2SAT 98
== END 2021-07-26 11:01 | disposition home or self-care (01) ==
PROVIDERS: Emergency Provider Emergency Medicine; PCP Internal Medicine Adolescent Medicine
DX: S61.313A Laceration without foreign body of left middle finger with damage to nail, initial encounter (principal); Z88.5 Allergy status to narcotic agent; Z88.8 Allergy status to other drugs, medicaments and biological substances
CPT/HCPCS: 12001; 99213; 99282; G0463

== ENCOUNTER → 2021-08-08 09:16 | Outpatient (CLI) | payer MEDICARE, MEDICAID, SELFPAY ==
--- NOTE | 2021-08-08 09:22 | XR_ITS ---
FINAL REPORT CLINICAL HISTORY: axillary, grashy, supraspenatus LT SHOULDER PAIN, NO INJURY COMPARISON: 01/08/2021 FINDINGS: LEFT SHOULDER Three views were obtained. There is no acute fracture or dislocation. There is mild AC joint degenerative change. No soft tissue abnormality is identified. IMPRESSION: Mild AC joint degenerative change. Reviewed, Interpreted and Dictated by Hugo Kendrick III, MD Transcribed by Akiko Mcmullen Authenticated and [facility]
== END ==
PROVIDERS: PCP Internal Medicine Adolescent Medicine; Visit Provider Orthopaedic Surgery
DX: M25.512 Pain in left shoulder (principal)
CPT/HCPCS: 73030

== ENCOUNTER 2021-09-06 15:14 | Emergency (ER) | payer MEDICARE, MEDICAID, SELFPAY ==
--- NOTE | 2021-09-06 15:29 | XR_ITS ---
FINAL REPORT CLINICAL HISTORY: fall, hip pain FINDINGS: HIP BILATERAL Five views were obtained. There is no acute fracture or dislocation. There are mild hypertrophic changes at the acetabular margins. No soft tissue abnormality is identified. IMPRESSION: Mild changes of osteoarthritis. Reviewed, Interpreted and Dictated by Lambert Lundberg MD Transcribed by Akiko Mcmullen Authenticated and [facility]
--- NOTE | 2021-09-06 15:29 | XR_ITS ---
FINAL REPORT CLINICAL HISTORY: fall, knee pain FINDINGS: RIGHT KNEE Three views were obtained. There is no acute fracture or dislocation. The joint spaces appear normal. No joint effusion is identified. No soft tissue abnormality is identified. IMPRESSION: No acute process. Reviewed, Interpreted and Dictated by Lambert Lundberg MD Transcribed by Akiko Mcmullen Authenticated and [facility]
[2021-09-06 15:30] VITALS: BP 118/75; PULSE 88; RESP 16; O2SAT 99
--- NOTE | 2021-09-06 15:31 | HMH.EDGENADL ---
ED Disposition Clinical Impression: Laceration, Knee sprain Fall Qualifiers: Encounter type: initial encounter Qualified Code(s): W19.XXXA - Unspecified fall, initial encounter Disposition: Home, Self-Care Condition on Discharge: Good Instructions: DI for Laceration Repair -- Complex Suture, Knee Sprain Referrals: Tree Clemons MD [Primary Care Provider] - 7-14 days (For removal of 4 sutures) Time of Disposition: 16:30 - Critical Care Critical Care Time: No Attestation: On 09/06/21, the high probability of a clinically significant, sudden or life threatening deterioration of the following system(s) required my full and direct attention, intervention and personal management. The time I documented below is in addition to time spent performing reported procedures but includes the following listed in this critical care notation. Medical Decision Making - Medical Records Medical records reviewed: Yes: I reviewed the patient's medical records. - Sea Inquiry Pt receiving controlled substance: No Vital Signs: 09/06/21 15:54 Temperature 98.1 F Temperature Source Oral Pulse Rate [Left Radial] 86 Respiratory Rate 17 Blood Pressure [Right Arm] 206/76 H Blood Pressure Mean [Right Arm] 119 02 Sat by Pulse Oximetry 94 L Orders (Tests/Meds): ORDERS Category Date Time Status XR hip BI w PEL1V Stat Exams 09/06/21 15:29 Taken XR knee RT 3V Stat Exams 09/06/21 15:29 Taken - Radiology Data #1 Image(s): Pelvis Image Reviewed: Yes I reviewed the patient's radiology image Preliminary Findings: Normal/NAD #2 Image(s): Knee Image Reviewed: Yes I reviewed the patient's radiology image Preliminary Findings: Normal/NAD General Adult HPI - General Stated complaint: AO09/06/21@1445 fall left leg, R knee arm inj Time Seen by Provider: 09/06/21 15:31 - History of Present Illness HPI narrative: 65-year-old female, presents status post fall, states she fell through her porch, sustained laceration to the posterior aspect of the left upper thigh, twisted the right knee, has pain in the left hip as well. She denies any head strike or loss of consciousness, denies any subsequent nausea or vomiting, visual changes, neck or back pain. She was ambulatory, however reports pain in the right knee on ambulation. There were no treatments prior to this visit - Related Data Home Medications Medication Instructions Recorded Confirmed calcium carbonate 600 mg calcium 600 mg PO DAILY 06/05/20 08/08/21 (1,500 mg) tablet magnesium oxide 400 mg (241.3 mg 400 mg PO DAILY 08/14/20 08/08/21 magnesium) tablet naproxen sodium 220 mg capsule 220 mg PO BID PRN 11/13/20 08/08/21 omeprazole 40 mg capsule,delayed 40 mg PO DAILY cap 04/25/21 08/08/21 release folic acid 400 mcg tablet 0.4 mg PO DAILY 06/20/21 08/08/21 multivitamin 1 tab PO DAILY 06/20/21 08/08/21 Previous Rx's Medication Instructions Recorded guaiFENesin [Mucinex 600mg tablet] 1 - 2 tab PO BIDP PRN #30 tab 05/23/21 methylprednisolone 4 mg tablets in 4 mg PO DAILY #21 tab 07/30/21 a dose pack Allergies Allergy/AdvReac Type Severity Reaction Status Date / Time gabapentin [GABAPENTIN] Allergy Severe SWELLING Verified 08/08/21 10:15 THROAT meloxicam [MELOXICAM] Allergy Intermediate THROART Verified 08/08/21 10:15 SWELLING codeine [CODEINE] Allergy Unknown NA-NAUSEA/V Verified 08/08/21 10:15 OMITING hydrocodone [HYDROCODONE] Allergy Unknown ATAXIA Verified 08/08/21 10:15 morphine [MORPHINE] Allergy Unknown NA-NAUSEA/V Verified 08/08/21 10:15 OMITING [facility] History - Hepatitis A Screen Attestation statement:: This patient has been screened for Hepatitis A risk factors. Medical History: Reports:: Anxiety, Depression, Gastroesophageal Reflux Disease(GERD), Hypertension Other Medical History: Reports: Arthritis, Other Comment: Multiple sclerosis, depression, WESLEY Laterality Cases: Left: Breast Biopsy Oth
--- NOTE | 2021-09-06 15:43 | PC.NURSE ---
pt to radiology
[2021-09-06 15:54] VITALS: BP 206/76; PULSE 86; RESP 17; TEMP 36.7; O2SAT 94; BMI 21.6
--- NOTE | 2021-09-06 16:00 | PC.NURSE ---
pt returned from xray, pt ambulated to restroom as this time.
--- NOTE | 2021-09-06 16:01 | PC.NURSE ---
pt returned from radiology
--- NOTE | 2021-09-06 16:21 | PC.NURSE ---
KATIA DEE at suturing
[2021-09-06 16:35] VITALS: BP 107/57; PULSE 71; RESP 18; TEMP 36.8; O2SAT 99
--- NOTE | 2021-09-06 16:42 | PC.NURSE ---
checked on pt and gave a warm blanket
== END 2021-09-06 16:35 | disposition home or self-care (01) ==
PROVIDERS: Emergency Provider Emergency Medicine; PCP Internal Medicine Adolescent Medicine
DX: S71.112A Laceration without foreign body, left thigh, initial encounter (principal); W45.8XXA Other foreign body or object entering through skin, initial encounter; M25.561 Pain in right knee; M25.552 Pain in left hip
CPT/HCPCS: 12002; 73521; 73562; 99283

== ENCOUNTER → 2021-11-27 09:14 | Outpatient (CLI) | payer MEDICARE, MEDICAID, SELFPAY ==
--- NOTE | 2021-11-27 09:23 | XR_ITS ---
FINAL REPORT CLINICAL HISTORY: shoulder pain COMPARISON: January 08, 2021 FINDINGS: 3 views of the left shoulder were obtained. There is no acute fracture or dislocation. There is mild AC joint arthrosis. There are no soft tissue abnormalities. IMPRESSION: Mild AC joint arthrosis, similar to prior. Reviewed, Interpreted and Dictated by Hugo Kendrick III, MD Transcribed by Kenji Mcclure Authenticated and [facility]
== END ==
PROVIDERS: PCP Internal Medicine Adolescent Medicine; Visit Provider Orthopaedic Surgery
DX: M25.512 Pain in left shoulder (principal)
CPT/HCPCS: 73030

== ENCOUNTER 2021-11-27 14:38 | Emergency (ER) | payer MEDICARE, MEDICAID, SELFPAY ==
[2021-11-27 14:39] VITALS: BP 175/83; PULSE 68; RESP 18; TEMP 36.7; O2SAT 98; BMI 21.9
--- NOTE | 2021-11-27 14:49 | PC.NURSE ---
RIGHT LOWER EXTREMITY ELEVATED AND ICE PACK APPLIED.
--- NOTE | 2021-11-27 14:53 | XR_ITS ---
FINAL REPORT CLINICAL HISTORY: fall FINDINGS: RIGHT FOOT: Three views of the right foot were obtained. There is no acute fracture or dislocation. There are mild degenerative changes. There is no soft tissue abnormality. IMPRESSION: No acute bony abnormality. Reviewed, Interpreted and Dictated by Hugo Kendrick III, MD Transcribed by Kenji Mcclure Authenticated and [facility]
--- NOTE | 2021-11-27 14:53 | XR_ITS ---
FINAL REPORT CLINICAL HISTORY: fall COMPARISON: September 06, 2021 FINDINGS: 2 views of the right hip and an AP pelvis were obtained. There is no acute fracture or dislocation. There are mild degenerative changes. There are no soft tissue abnormalities. IMPRESSION: No acute bony abnormality. Should symptoms persist or are severe consider follow-up CT or MRI. Reviewed, Interpreted and Dictated by Hugo Kendrick III, MD Transcribed by Kenji Mcclure Authenticated and [facility]
--- NOTE | 2021-11-27 14:53 | XR_ITS ---
FINAL REPORT CLINICAL HISTORY: fall FINDINGS: RIGHT ANKLE: Three views of the right ankle were obtained. There is a transverse fracture of the inferior tip of the lateral malleolus with mild distraction. No other fractures are identified. The ankle mortise is intact. There is lateral soft tissue swelling. IMPRESSION: Fracture of the tip of the lateral malleolus with mild distraction. Reviewed, Interpreted and Dictated by Hugo Kendrick III, MD Transcribed by Kenji Mcclure Authenticated and [facility]
--- NOTE | 2021-11-27 15:30 | HMH.EDGENADL ---
Discharge Plan Disposition Patient Disposition: Home, Self-Care Condition: Good Prescriptions Prescriptions: New oxycodone-acetaminophen [Percocet] 5-325 mg tablet 1 tab PO Q6H PRN (Reason: pain) Qty: 10 0RF No Action calcium carbonate [Calcium 600] 600 mg calcium (1,500 mg) tablet 600 mg PO DAILY omeprazole 40 mg capsule,delayed release(DR/EC) 40 mg PO DAILY methylprednisolone [Medrol (Rashid)] 4 mg tablets,dose pack 4 mg PO DAILY Qty: 21 0RF Rx Instructions: As directed after meals. Stop NSAIDs OTC magnesium oxide 400 mg (241.3 mg magnesium) tablet 400 mg PO DAILY naproxen sodium [Aleve] 220 mg capsule 220 mg PO BID PRN folic acid 400 mcg tablet 0.4 mg PO DAILY multivitamin Tablet 1 tab PO DAILY guaifenesin 600 MG tablet extended release 12hr 1 - 2 tab PO BIDP PRN (Reason: Congestion) Qty: 30 0RF Referrals Follow up/Referrals: Tree Clemons MD [Primary Care Provider] - See instructions Activity Restrictions/Add. Instructions Additional Instructions/Restrictions: Follow-up with your orthopedic physician within 1 week. Call to make appointment. Elevate leg. Ice 20 minutes 4 times a day to reduce pain and swelling. Percocet as needed for severe pain. Tylenol as needed for less severe pain. Additional instructions for CONTROLLED SUBSTANCES: You have been prescribed a medication that is a controlled substance. Controlled substances include pain medications known as opiates and sedative nerve medications known as benzodiazepines. Tramadol, fioricet, and gabapentin are also controlled substances. Some common opiates include: Codeine (such as Tylenol #3) Hydrocodone (Vicodin, Lortab, Lorcet, [place]) Oxycodone (Percocet, Percodan, Oxycodone, Oxy IR) Some common benzodiazepines include: Diazepam (Valium) Lorazepam (Ativan) Alprazolam (Xanax) Clonazepam (Klonopin) Oxazepam (Serax) All of these controlled substances are highly addictive and frequently abused. Misuse can and frequently does lead to addiction as well as overdose and . Medication should be stored in a locked cabinet or other secure storage unit. Do not store the medication in a motor vehicle. Short term supplies, 3 days or less, are prescribed because of the highly addictive nature of the medication. Any of the controlled substance medication NOT taken should be disposed of properly and NOT SAVED. The recommended method of disposing of unused medications is: Place the medicines in a sealable plastic bag. If the medicine is a solid, crush it or add water to dissolve it. Add something undesirable (cat litter, coffee grounds, etc.) Dispose of sealed bag in household trash Do not flush or pour unused medicines down a sink or drain. Controlled substances should not be shared, given away or sold. Because of the addictive nature and frequent abuse, these medications are sometimes stolen. These medications should be kept in a safe place where they cannot be stolen. Do not keep them in your car or purse. Lost or stolen prescriptions for controlled substances WILL NOT BE REFILLED in this emergency department, regardless of whether a police report was filed. Clinical Impressions Clinical Impression: Ankle fracture, lateral malleolus, closed, Contusion of hip Discharge ED Provider: Deepak Rizvi General Adult HPI General Chief complaint: Fall Stated complaint: AO [id number]@[email or web address] pain in Rt ankle Time Seen by Provider: 11/27/21 15:20 Mode of Arrival: Wheelchair Source of Information: Patient Limitations: No Limitations Description of Symptoms (Recalled from ER Triage Doc. by RN): Pt c/o rt ankle pain/swelling and pain in rt hip after slipping on the bottom 2 steps while carrying a box History of Present Illness HPI narrative: Patient states she was carrying a box on her right shoulder when she slipped on the bottom 2 steps of her staircase injuring her right ankle a
[2021-11-27 16:09] VITALS: BP 138/72; PULSE 66; RESP 16; TEMP 36.9; O2SAT 99
== END 2021-11-27 16:12 | disposition home or self-care (01) ==
PROVIDERS: Emergency Provider Emergency Medicine; PCP Internal Medicine Adolescent Medicine
DX: W10.9XXA Fall (on) (from) unspecified stairs and steps, initial encounter (principal); Z79.899 Other long term (current) drug therapy; Z88.5 Allergy status to narcotic agent; Z88.6 Allergy status to analgesic agent; F15.11 Other stimulant abuse, in remission; G35 Multiple sclerosis; S82.64XA Nondisplaced fracture of lateral malleolus of right fibula, initial encounter for closed fracture; S70.01XA Contusion of right hip, initial encounter
CPT/HCPCS: 73030; 73502; 73610; 73630; 99284

== ENCOUNTER → 2022-01-08 12:29 | Outpatient (CLI) | payer MEDICARE, MEDICAID, SELFPAY ==
--- NOTE | 2022-01-08 12:47 | XR_ITS ---
FINAL REPORT CLINICAL HISTORY: rt ankle fracture f/u COMPARISON: November 28, 2019 FINDINGS: RIGHT ANKLE: Three views of the right ankle were obtained. There is a well corticated os ossific density inferior to the lateral malleolus probably due to healed avulsion fracture. The previously identified soft tissue edema has resolved. IMPRESSION: Healed fracture deformity inferior to the lateral malleolus. Reviewed, Interpreted and Dictated by Lambert Lundberg MD Transcribed by Kenji Mcclure Authenticated and [facility]
== END ==
PROVIDERS: PCP Internal Medicine Adolescent Medicine; Visit Provider Orthopaedic Surgery
DX: S82.61XA Displaced fracture of lateral malleolus of right fibula, initial encounter for closed fracture (principal)
CPT/HCPCS: 73610

== ENCOUNTER → 2022-02-21 09:56 | Outpatient (CLI) | payer MEDICARE, MEDICAID, SELFPAY ==
--- NOTE | 2022-02-21 09:59 | MM_ITS ---
PROCEDURE INFORMATION: Exam: MG Bilateral Screening 3D Mammography Exam date and time: 02/21/2022 10:05 AM Age: 66 years old Clinical indication: Screening examination TECHNIQUE: Imaging protocol: Bilateral Screening tomosynthesis and 2D mammography including computer-aided detection (CAD) when performed. COMPARISON: 1. MG MM DIG SCREENING MAMM BI W/CAD 11/10/2019 1:07 PM 2. MG MM DIG SCREENING MAMM BI W/CAD 11/06/2018 4:22 PM FINDINGS: MAMMOGRAPHY: Breast composition: There are scattered areas of fibroglandular density. Mass: None. Architectural distortion: None. Calcifications: No suspicious calcifications. Asymmetric density: None. Skin thickening: None. Axillary adenopathy: None. IMPRESSION: No mammographic evidence of malignancy. Annual screening is recommended unless otherwise clinically indicated. ASSESSMENT: BI-RADS Category 1: Negative
== END ==
PROVIDERS: PCP Internal Medicine Adolescent Medicine; Visit Provider Nurse Practitioner Family
DX: Z12.31 Encounter for screening mammogram for malignant neoplasm of breast (principal)
CPT/HCPCS: 77063; 77067

== ENCOUNTER → 2022-03-07 12:31 | Outpatient (CLI) | payer MEDICARE, MEDICAID, SELFPAY ==
--- NOTE | 2022-03-07 12:52 | XR_ITS ---
FINAL REPORT CLINICAL HISTORY: RT ANKLE PAIN DUE TO TRAUMA COMPARISON: January 08, 2022 FINDINGS: RIGHT ANKLE Three views of the right ankle were obtained. Again noted is a nondisplaced fracture of the inferior tip of the lateral malleolus. There are mild degenerative changes. There is lateral soft tissue swelling. IMPRESSION: Nondisplaced fracture of the inferior tip of the lateral malleolus. Reviewed, Interpreted and Dictated by Hugo Kendrick III, MD Transcribed by Pamela Muller Authenticated and [facility]
== END ==
PROVIDERS: PCP Nurse Practitioner Family; Visit Provider Nurse Practitioner Family
DX: M25.571 Pain in right ankle and joints of right foot (principal); G89.11 Acute pain due to trauma
CPT/HCPCS: 73610

== ENCOUNTER → 2022-03-28 10:45 | Outpatient (CLI) | payer MEDICARE, MEDICAID, SELFPAY ==
[2022-03-28 11:18] LABS: Basophils # 0.2 K/mm3 (0-0.2); Basophils % 1.5 % (0.1-2.0); Eosinophils # 0.2 K/mm3 (0.0-0.4); Eosinophils % 1.9 % (0.1-12.0); Hematocrit 43.9 % (37.0-47.0); Hemoglobin 14.1 g/dL (12.2-16.2); Lymphocytes # 3.8 K/mm3 (0.7-4.5); Lymphocytes % 40.2 % (10-50); Mean Corpuscular HGB Conc 32.1 g/dL (31.8-35.4); Mean Corpuscular Hemoglobin 29.2 pg (27.0-31.2); Mean Corpuscular Volume 90.9 fl (81-99); Mean Platelet Volume 9.1 fl (7.4-10.4); Monocytes # 0.5 K/mm3 (0.1-1.0); Monocytes % 5.5 % (1.7-9.3); Neutrophils # 4.8 K/mm3 (1.8-7.8); Neutrophils % 50.9 % (37.0-80.0); Platelet Count 242 K/mm3 (142-424); Red Blood Count 4.83 M/mm3 (4.20-5.40); Red Cell Distribution Width 12.8 % (11.5-17.5); White Blood Count 9.5 K/mm3 (4.8-10.8)
[2022-03-28 11:47] LABS: Alanine Aminotransferase 24 U/L (12-78); Albumin Level 4.7 g/dl (3.5-5.0); Albumin/Globulin Ratio 1.7 (1.1-1.8); Alkaline Phosphatase 83 U/L (38-126); Anion Gap 9.8 mEq/L (5-15); Aspartate Amino Transferase 39 U/L (14-36); Bilirubin,Total 0.4 mg/dl (0.2-1.3); Blood Urea Nitrogen 15 mg/dl (7-17); Calcium 9.3 mg/dl (8.4-10.2); Carbon Dioxide 32 mmol/L (22.0-30.0); Chloride 102 mmol/L (98-107); Estimated Glomerular Filt Rate 71 ml/min (>60); GFR (African American) 86 ML/MIN (>60); Globulin 2.8 g/dL (1.3-3.2); Glucose 85 mg/dl (74-100); Potassium 3.8 mmoL/L (3.5-5.1); Sodium 140 mmol/L (136-145); Total Protein,Serum 7.5 g/dl (6.3-8.2)
[2022-03-28 12:27] LABS: Appearance,Urine CLEAR (Clear); Bilirubin,Urine Negative (Negative); Blood, Urine Negative (Negative); Color,Urine YELLOW (Yellow); Glucose,Urine (UA) Negative (Negative); Ketones,Urine Negative (Negative); Leukocyte Esterase,Urine Negative (Negative); Nitrate,Urine Negative (Negative); Protein,Urine Negative (Negative); Specific Gravity, Urine <= 1.005 (1.005-1.030); Urobilinogen,Urine 0.2 EU/dl (0.2)
[2022-03-28 12:53] LABS: Microscopic, Urine URINE MICROSCOPIC (MICROSCOPIC); Squamous Epithelial Cell,Urine Occasional #/hpf (0-5); WBC,Urine Occasional #/hpf (0-3)
== END ==
PROVIDERS: PCP Internal Medicine Adolescent Medicine; Visit Provider Orthopaedic Surgery
DX: H53.9 Unspecified visual disturbance (principal); Z01.818 Encounter for other preprocedural examination
CPT/HCPCS: 36415; 80053; 81001; 85025

== ENCOUNTER 2022-04-01 11:15 | Day surgery (SDC) | payer MEDICARE, MEDICAID, SELFPAY ==
[2022-03-29 09:10] VITALS: BMI 21.9
[2022-04-01] VITALS (9 sets, daily range): BP systolic 141–187; BP diastolic 78–99; PULSE 66–92; RESP 12–18; TEMP 36.3–37.3; O2SAT 92–99
--- NOTE | 2022-04-01 12:48 | EXP.ANES.CKL ---
[facility] Disclaimer: The information contained in this section may have been updated after the patient was seen, as this information can be updated by other users. Medical History (Updated 04/01/22 @ 12:17 by Boris Rand RN) Anxiety Cervical radiculopathy GERD (gastroesophageal reflux disease) History of hepatitis C HTN (hypertension) Legal blindness Multiple sclerosis Multiple sclerosis Osteoarthritis of feet, bilateral Surgical History H/O breast biopsy H/O tubal ligation History of total hysterectomy with removal of both tubes and ovaries Family History Other COPD (chronic obstructive pulmonary disease) Cancer Heart attack Social History Smoking Status: Former smoker alcohol intake: never counseling provided: none substance use type: former substance user and methamphetamine current occupational status: disabled Travel in the last 8 weeks: None household members: family housing: house [facility] Anesthesia Checklist Patient Identification Patient Identification: Arm Band Structural Data Admitted From: Home Planned Operative Procedure/s: Left Shoulder Arthroscopy, Subacromial Decompression Consent for Planned Operative Procedure(s) Verified: Yes Verified Documents: Surgical Consent and History and Physical NPO Status Verified Time NPO: 00:00 Additional verifications Anesthesia Reactions: No (nausea) Hx Blood Transfusions: No Blood Transfusion Reaction: No Airway Assessment C-Spine Mobility Assessed: Yes TMJ Mobility Assessed: Yes Neurological Assessment Level of Consciousness: Awake and Alert Anesthesia Plan Anesthesia Risk discussed: Yes Anesthesia Plan: Verified ASA Class: II Anesthesia Type: General w/block (Left Interscalene Nerve Block) Preoperative Comments Pre-Operative Comments: Pt has diagnosis of Multiple Sclerosis. Pt describes tingling in her fingers. Discussed at length the risk of nerve block potentially worsening peripheral neuropathy. Pt states that she would still like to have a nerve block. All other risk/benefits of nerve block explained and pt verbalized understanding
--- NOTE | 2022-04-01 15:01 | P.PNANES_ITS ---
[facility] Anesthesia Record Part I Anesthesia Record I Intake, IV Amount: 1,500 Estimated blood loss (mL): 0 Urine output (mL): 0 Blood Pressure: 153/86 SaO2: 96 Pulse Rate: 92 Respiratory Rate: 12 Temperature: 97.5 F Patient is:: Awake and Stable Stable to PACU at:: 14:55
--- NOTE | 2022-04-01 15:11 | P.OP_ITS ---
Date of procedure: 04/01/22 Pre-op Diagnosis:: Left shoulder impingement syndrome Post-op Diagnosis:: Left shoulder impingement syndrome with severe subacromial bursitis Procedure performed:: Left shoulder arthroscopy with debridement subacromial bursa and subacromial decompression Surgeon:: Asim Farr DO Upholstery Sewer(s):: Ruddy [employer] OPERATOR:: Jason Mcfadden Anesthesia: GETA and regional Estimated blood loss (mL): 0 Operative findings:: Severe subacromial bursitis with impingement downsloping acromion Operative note:: Patient is identified preoperatively left shoulder marked with a yes and my initials transferred operative suite after undergoing block with anesthesia. Placed supine on the operating bed and then into the lateral position with a beanbag once airway secured. All bony prominences were padded. Left shoulder was then prepped and draped in normal sterile fashion. Once prepped and draped final operative timeout performed to identify proper patient procedure and extremity. Everyone involved the case agreed. No Indications beginning. Did receive preoperative antibiotics. Marking pen was used to make planned incisions. Skin after using a size posterior viewing portal blunt trocar was placed in the glenohumeral joint. Cannula switch in the subacromial space and anterior working portal was made. This was switched with a purple cannula. Within the subacromial space there was severe bursitis the entire subacromial space had thickened severe bursitis which was extensively debrided. No full-thickness rotator cuff tear seen. Subac romial bursectomy was extensively taken out for visualization and debridement undersurface of the acromion with acromioplasty performed also debridement of distal end of the clavicle with leveling at the subacromial space. There is severe bursitis present throughout the subacromial space which was extensively debrided then visualized the remainder of the rotator cuff undersurface of the acromion no further pathology was seen Jj was removed. Joint was drained. Skin closed with nylon stitches. Sterile dressing placed. Patient placed in a sling taken to recovery stable condition. Condition: stable Disposition: PACU Complications:: None apparent
--- NOTE | 2022-04-01 15:46 | PC.NURSE ---
1518-detailed bedside report given to MILES Otoole 1525-pt transported to post op via stretcher w/jose rails up and left in care of MILES Otoole, vss, pt stable
--- NOTE | 2022-04-02 09:34 | P.PNANES_ITS ---
[facility] Anesthesia Record Part II Anesthesia Record Part II Discharge Time: 15:25 Destination: [facility] PACU nurse assessment reviewed?: Yes Patient Condition:: Good Anesthesia Complications:: None Swallowing reflex intact?: Yes Cyanosis?: No Blood Pressure: 163/89 Pulse Rate: 80 Temperature: 97.4 F Mental Status: Alert & Oriented Pain level:: 0 Nausea and/or vomitting:: None Intake, IV Amount: 1,500
[2022-04-02 09:35] VITALS: BP 163/89; PULSE 80; TEMP 36.3
== END 2022-04-01 15:56 | disposition home or self-care (01) ==
PROVIDERS: PCP Internal Medicine Adolescent Medicine; Visit Provider Orthopaedic Surgery
PROC: (CPT 29805; principal; 2022-04-01 12:45)
DX: M24.112 Other articular cartilage disorders, left shoulder (principal); M75.52 Bursitis of left shoulder; M75.42 Impingement syndrome of left shoulder; R29.6 Repeated falls; Z79.899 Other long term (current) drug therapy; G35 Multiple sclerosis
CPT/HCPCS: 29822; 96374; J2405

== ENCOUNTER → 2022-05-08 11:19 | Outpatient (CLI) | payer MEDICARE, MEDICAID, SELFPAY ==
--- NOTE | 2022-05-08 11:24 | XR_ITS ---
FINAL REPORT CLINICAL HISTORY: PERSISTENT COUGH COMPARISON: 02/09/2020 FINDINGS: Two views of the chest were obtained. The heart size and pulmonary vascularity are within normal limits. The mediastinum is normal. No acute pulmonary abnormality is identified. There is no pneumothorax. The bony thorax is intact. IMPRESSION: No active cardiopulmonary disease. Reviewed, Interpreted and Dictated by Hugo Kendrick III, MD Transcribed by Pamela Muller Authenticated and [facility]
== END ==
PROVIDERS: PCP Internal Medicine Adolescent Medicine; Visit Provider Nurse Practitioner Family
DX: R05.3 Chronic cough (principal)
CPT/HCPCS: 71046

== ENCOUNTER → 2022-05-13 08:52 | Outpatient (CLI) | payer MEDICARE, MEDICAID, SELFPAY ==
--- NOTE | 2022-05-13 09:00 | XR_ITS ---
FINAL REPORT TECHNIQUE: Bone densitometry calculations of the lumbar spine and left hip were obtained. CLINICAL HISTORY: . post menopausal screening COMPARISON: 01/18/2019 FINDINGS: Using L1-4, the bone mineral density of the spine is 0.879 g/cm2, corresponding to T-score of -1.5. Using the left hip, the bone mineral density of the femoral neck is 0.696 g/cm2, corresponding to a T-score of -2.0. Using the right hip, the bone mineral density of the femoral neck is 0.678 g/cm2, corresponding to a T-score of -1.5. NOTE: T-score: Standard deviation compared with peak bone mass of young adult mean. *Following the recommendations of the International Society of Bone densitometry, classification of hip BMD is based on the lower of two T-scores; total hip or femoral neck. IMPRESSION: Diminished bone mineral density of the lumbar spine and both hips the consistent with osteopenia. FRAX data reports 24% major osteoporotic fracture and 3.3% hip fracture. Reviewed, Interpreted and Dictated by Lambert Lundberg MD Transcribed by Akiko Mcmullen Authenticated and . [facility]
== END ==
PROVIDERS: PCP Internal Medicine Adolescent Medicine; Visit Provider Nurse Practitioner Family
DX: Z78.0 Asymptomatic menopausal state (principal)
CPT/HCPCS: 77080

== ENCOUNTER → 2022-07-16 11:43 | Outpatient (CLI) | payer MEDICARE, MEDICAID, SELFPAY | PROVIDERS: PCP Nurse Practitioner Family; Visit Provider Nurse Practitioner Family | DX: R00.2 Palpitations (principal) | CPT/HCPCS: 93225; 93226 ==

== ENCOUNTER → 2022-09-05 08:26 | Outpatient (CLI) | payer MEDICARE, MEDICAID, SELFPAY ==
--- NOTE | 2022-09-05 08:30 | CA_ITS ---
FINAL REPORT TECHNIQUE: Grayscale, color Doppler and duplex Doppler ultrasound of the kidneys, aorta and renal arteries was performed. Multiple velocities were measured. CLINICAL HISTORY: hypertension COMPARISON: None FINDINGS: Aorta velocity: 81.8 cm/sec Right kidney: 10.3 cm. No evidence of hydronephrosis or mass. Right intrarenal RI: 0.63 Right renal artery velocity: 156 cm/sec. Right RAR (Renal artery-Aortic Ratio): 1.9 Left Kidney: 8.6 cm. No evidence of hydronephrosis or mass. Left intrarenal RI: 0.65 Left renal artery velocity: 110.8 cm/sec. Left RAR (Renal Artery-Aortic Ratio): 0.65 IMPRESSION: No evidence of significant renal artery stenosis. CT angiogram or postcontrast MR angiogram would be more sensitive for evaluation of possible renal artery stenosis. Reviewed, Interpreted and Dictated by Hugo Kendrick III, MD Transcribed by Magalys Mas Authenticated and [facility]
--- NOTE | 2022-09-05 08:49 | US_ITS ---
FINAL REPORT CLINICAL HISTORY: I10 - Essential (primary) hypertension FINDINGS: The right kidney measures 9.4 cm in length. It is normal in echogenicity. There is no hydronephrosis. The left kidney measures 7.5 cm in length. It is normal in echogenicity. There is no hydronephrosis. The spleen is unremarkable. IMPRESSION: Small left kidney which may be due to atrophy or scarring. Reviewed, Interpreted and Dictated by Hugo Kendrick III, MD Transcribed by Akiko Mcmullen Authenticated and [facility]
== END ==
PROVIDERS: PCP Internal Medicine Adolescent Medicine; Visit Provider Nurse Practitioner
DX: I10 Essential (primary) hypertension (principal)
CPT/HCPCS: 76770; 93976

== ENCOUNTER → 2022-09-24 10:45 | Outpatient (CLI) | payer MEDICARE, MEDICAID, SELFPAY ==
--- NOTE | 2022-09-24 10:54 | ECG_ITS ---
APPROVED REPORT Cotton Ginner Helper: Conclusion Electronically signed by : Rupinder Gomez, 09/24/2022 18:22:42
--- NOTE | 2022-09-24 11:05 | XR_ITS ---
FINAL REPORT CLINICAL HISTORY: smoker COMPARISON: 05/08/2022 FINDINGS: Two views of the chest were obtained. The heart size and pulmonary vascularity are within normal limits. The mediastinum is normal. No acute pulmonary abnormality is identified. There is no pneumothorax. The bony thorax is intact. IMPRESSION: No active cardiopulmonary disease. Reviewed, Interpreted and Dictated by Hugo Kendrick III, MD Transcribed by Agustin Alvarado Authenticated and [facility]
[2022-09-24 11:20] LABS: Basophils % 0.5 % (0.1-2.0); Eosinophils # 0.1 K/mm3 (0.0-0.4); Eosinophils % 1.2 % (0.1-12.0); Hemoglobin 12.7 g/dL (12.2-16.2); Lymphocytes # 2.7 K/mm3 (0.7-4.5); Lymphocytes % 35.7 % (10-50); Mean Corpuscular HGB Conc 31.8 g/dL (31.8-35.4); Mean Corpuscular Hemoglobin 28.5 pg (27.0-31.2); Mean Corpuscular Volume 89.4 fl (81-99); Mean Platelet Volume 8.9 fl (7.4-10.4); Monocytes # 0.5 K/mm3 (0.1-1.0); Monocytes % 6.6 % (1.7-9.3); Neutrophils # 4.2 K/mm3 (1.8-7.8); Neutrophils % 55.9 % (37.0-80.0); Platelet Count 197 K/mm3 (142-424); Red Blood Count 4.47 M/mm3 (4.20-5.40); Red Cell Distribution Width 12.9 % (11.5-17.5); White Blood Count 7.5 K/mm3 (4.8-10.8)
[2022-09-24 12:16] LABS: Alanine Aminotransferase 17 U/L (12-78); Albumin Level 4.5 g/dl (3.5-5.0); Albumin/Globulin Ratio 1.6 (1.1-1.8); Alkaline Phosphatase 70 U/L (38-126); Anion Gap 11.3 mEq/L (5-15); Aspartate Amino Transferase 30 U/L (14-36); Bilirubin,Total 0.3 mg/dl (0.2-1.3); Blood Urea Nitrogen 21 mg/dl (7-17); Calcium 9.4 mg/dl (8.4-10.2); Carbon Dioxide 30 mmol/L (22.0-30.0); Chloride 102 mmol/L (98-107); Estimated Glomerular Filt Rate 62 ml/min (>60); GFR (African American) 75 ML/MIN (>60); Globulin 2.9 g/dL (1.3-3.2); Glucose 95 mg/dl (74-100); Potassium 4.3 mmoL/L (3.5-5.1); Sodium 139 mmol/L (136-145); Total Protein,Serum 7.4 g/dl (6.3-8.2)
== END ==
PROVIDERS: PCP Internal Medicine Adolescent Medicine; Visit Provider Orthopaedic Surgery
DX: H53.9 Unspecified visual disturbance (principal); Z01.818 Encounter for other preprocedural examination; G56.01 Carpal tunnel syndrome, right upper limb
CPT/HCPCS: 36415; 71046; 80053; 85025; 93005

== ENCOUNTER 2022-09-30 10:24 | Day surgery (SDC) | payer MEDICARE, MEDICAID, SELFPAY ==
[2022-09-27 11:33] VITALS: BMI 23.2
[2022-09-30] VITALS (7 sets, daily range): BP systolic 99–129; BP diastolic 54–77; PULSE 65–69; RESP 16–18; TEMP 36.6–43; O2SAT 95–100
--- NOTE | 2022-09-30 10:54 | EXP.ANES.CKL ---
[facility] Disclaimer: The information contained in this section may have been updated after the patient was seen, as this information can be updated by other users. Medical History Abnormal Holter monitor finding Anxiety Atypical angina Cervical radiculopathy Dyspnea Edema Fatigue GERD (gastroesophageal reflux disease) History of hepatitis C HTN (hypertension) Legal blindness Multiple sclerosis Multiple sclerosis Osteoarthritis of feet, bilateral Surgical History H/O breast biopsy H/O tubal ligation History of total hysterectomy with removal of both tubes and ovaries Family History Other COPD (chronic obstructive pulmonary disease) Cancer Heart attack Social History Smoking Status: Former smoker alcohol intake: never counseling provided: none substance use type: former substance user and methamphetamine current occupational status: disabled Travel in the last 8 weeks: None household members: family housing: house lives independently: No education level: high school service: No group home: No do you feel safe at home: Yes victim of physical abuse: No victim of emotional abuse: No victim of sexual abuse: No would you like helpful sources: No [facility] Anesthesia Checklist Patient Identification Patient Identification: Arm Band and Verbal (Name & ) Structural Data Admitted From: Home Planned Operative Procedure/s: CTR Consent for Planned Operative Procedure(s) Verified: Yes NPO Status Verified Time NPO: 00:00 Additional verifications Anesthesia Reactions: No (nausea) Hx Blood Transfusions: No Blood Transfusion Reaction: No Airway Assessment Mallampati Score:: Class I C-Spine Mobility Assessed: Yes TMJ Mobility Assessed: Yes Dentition: Good Dentition Neurological Assessment Level of Consciousness: Awake Hx Seizures: No Numbness or tingling in extremities: Yes Anesthesia Plan Anesthesia Risk discussed: Yes Anesthesia Plan: Verified ASA Class: II Anesthesia Type: MAC
--- NOTE | 2022-09-30 12:47 | P.OP_ITS ---
Date of procedure: 09/30/22 Pre-op Diagnosis:: Right carpal tunnel syndrome Post-op Diagnosis:: Same Procedure performed:: Right endoscopic carpal tunnel release Surgeon:: Asim Farr DO ROAD MACHINERY INSPECTOR:: William Sommers Anesthesia: MAC and local Estimated blood loss (mL): 0 Operative findings:: See dictation Operative note:: Patient identified preoperatively. Right wrist marked with yes my initials. Transported operative suite placed prone operating bed. Right upper extremity was then prepped and draped normal sterile fashion. Once prepped and draped final operative timeout performed to identify proper patient procedure and extremity. Everyone involved the case agreed. No counter indications to beginning. She did receive preoperative antibiotics. Patient was given sedation and local anesthesia was infiltrated to the planned incision over the volar wrist on the right. Esmarch was used exsanguinate the extremity pneumatic tourniquet inflated to 250 mmHg. Skin knife was used incise through skin careful dissection was taken down with the scissors to identify the most proximal aspect of the transverse carpal ligament. The dilator from the endoscopic carpal tunnel release set was utilized to go within the carpal tunnel followed by the right sided sled for the 4.0 mm camera. Camera was then introduced into the carpal tunnel transverse carpal ligament was seen superiorly within the camera. Probe was used to probe the end of the transverse carpal ligament rasp was used to remove soft tissue from the undersurface. Then the hook blade from the [employer] endoscopic carpal tunnel system was utilized to incise the transverse carpal ligament. This was directly visualized. Sled removed irrigation wound performed skin closed with nylon stitches sterile hand dressing placed patient waken anesthesia taken recovery in stable condition. Condition: stable Disposition: PACU Complications:: None apparent
== END 2022-09-30 13:40 | disposition home or self-care (01) ==
PROVIDERS: PCP Internal Medicine Adolescent Medicine; Visit Provider Orthopaedic Surgery
PROC: (CPT 64721; principal; 2022-09-30 12:00)
DX: G56.01 Carpal tunnel syndrome, right upper limb (principal)
CPT/HCPCS: 29848; 96374

== ENCOUNTER 2023-03-11 10:21 | Outpatient (CLI) | payer MEDICARE, MEDICAID, SELFPAY ==
[2023-03-11 11:13] LABS: Alanine Aminotransferase 17 U/L (12-78); Albumin Level 4.6 g/dl (3.5-5.0); Albumin/Globulin Ratio 1.6 (1.1-1.8); Alkaline Phosphatase 58 U/L (38-126); Anion Gap 11.7 mEq/L (5-15); Aspartate Amino Transferase 30 U/L (14-36); Bilirubin,Total 0.5 mg/dl (0.2-1.3); Blood Urea Nitrogen 19 mg/dl (7-17); Carbon Dioxide 29 mmol/L (22.0-30.0); Chloride 102 mmol/L (98-107); Chol/HDL Ratio 3.5 (1-3.5); Cholesterol 181 mg/dl (140-200); Estimated Glomerular Filt Rate 62 ml/min (>60); GFR (African American) 75 ML/MIN (>60); Globulin 2.8 g/dL (1.3-3.2); Glucose 107 mg/dl (74-100); HDL Cholesterol 51 mg/dl (40-60); Potassium 3.7 mmoL/L (3.5-5.1); Sodium 139 mmol/L (136-145); Total Protein,Serum 7.4 g/dl (6.3-8.2); Triglycerides 58 mg/dl (30-150); VLDL Cholesterol 12 mg/dL (0-40)
[2023-03-11 11:23] LABS: C-Reactive Protein 5.3 mg/L (0-4); Direct LDL Cholesterol 108.08 mg/dL (100-129)
[2023-03-11 11:28] LABS: Erythrocyte Sedimentation Rate 21 mm/hr (0-30)
[2023-03-12 10:34] LABS: Anti-Centromere B Antibodies <0.2 AI (0.0-0.9); Anti-DNA (DS) Ab Qn <1 IU/mL (0-9); Anti-Jo-1 <0.2 AI (0.0-0.9); Anti-Smith Antibody <0.2 AI (0.0-0.9); Antichromatin Antibodies <0.2 AI (0.0-0.9); Antiscleroderma-70 Antibodies <0.2 AI (0.0-0.9); RNP Antibodies <0.2 AI (0.0-0.9); Sjogren's Anti-SS-A <0.2 AI (0.0-0.9); Sjogren's Anti-SS-B <0.2 AI (0.0-0.9)
[2023-03-12 12:13] LABS: Anti-Cyclic Citrullinated Pept 8 units (0-19)
== END 2023-03-11 23:59 ==
LOC: LAB 10:22
PROVIDERS: PCP Nurse Practitioner Family; Visit Provider Nurse Practitioner Family
DX: E78.5 Hyperlipidemia, unspecified (principal); M25.50 Pain in unspecified joint; I73.00 Raynaud's syndrome without gangrene
CPT/HCPCS: 36415; 80053; 80061; 85651; 86140; 86200; 86225; 86235

== ENCOUNTER 2023-04-17 10:46 | Outpatient (CLI) | payer MEDICARE, MEDICAID, SELFPAY ==
--- NOTE | 2023-04-17 10:51 | MM_ITS ---
PROCEDURE INFORMATION: Exam: MG Bilateral Screening 3D Mammography Exam date and time: 04/17/2023 10:44 AM Age: 67 years old Clinical indication: Screening examination TECHNIQUE: Imaging protocol: Bilateral Screening tomosynthesis and 2D mammography including computer-aided detection (CAD) when performed. COMPARISON: 1. MG MM DIG SCREENING MAMM BI W/CAD 02/21/2022 10:05 AM 2. MG MM DIG SCREENING MAMM BI W/CAD 11/10/2019 1:07 PM FINDINGS: MAMMOGRAPHY: Breast composition: There are scattered areas of fibroglandular density. Mass: None. Architectural distortion: None. Calcifications: No suspicious calcifications. Asymmetric density: None. Skin thickening: None. Axillary adenopathy: None. IMPRESSION: No mammographic evidence of malignancy. Annual screening is recommended unless otherwise clinically indicated. ASSESSMENT: BI-RADS Category 1: Negative
== END 2023-04-17 23:59 ==
LOC: RAD 10:47
PROVIDERS: PCP Nurse Practitioner Family; Visit Provider Nurse Practitioner Family
DX: Z12.31 Encounter for screening mammogram for malignant neoplasm of breast (principal)
CPT/HCPCS: 77063; 77067

== ENCOUNTER 2023-04-24 09:42 | Outpatient (CLI) | payer MEDICARE, MEDICAID, SELFPAY | END 2023-04-24 23:59 | LOC: RT 09:44 | PROVIDERS: PCP Nurse Practitioner Family; Visit Provider Nurse Practitioner Family | DX: R06.09 Other forms of dyspnea (principal) | CPT/HCPCS: 93225 ==

== ENCOUNTER 2023-04-28 08:22 | Outpatient (CLI) | payer MEDICARE, MEDICAID, SELFPAY | END 2023-04-28 23:59 | LOC: RT 08:24 | PROVIDERS: PCP Internal Medicine Adolescent Medicine; Visit Provider Nurse Practitioner Family | DX: I10 Essential (primary) hypertension (principal); R06.00 Dyspnea, unspecified; R53.83 Other fatigue; I20.89 Other forms of angina pectoris | CPT/HCPCS: 93270 ==

== ENCOUNTER 2023-05-08 09:44 | Outpatient (CLI) | payer MEDICARE, MEDICAID, SELFPAY ==
--- NOTE | 2023-05-08 09:47 | CA_ITS ---
APPROVED REPORT EXAM: Comprehensive 2D, Doppler, and color-flow Echocardiogram Implementation Analyst: Ying Liang RT(R) Ht: 5 ft 3 in Wt: 130lbs BSA: 1.61 BP: 135/60 mmHg Indications: SOB, CP, ex smoker, palpitations, fatigue, HTN, edema, family history of HD, angina, hx hep C, legal blindness, multiple sclerosis, abn EKG 2D Dimensions LVEF (Cherry's) 65.40 % F: 54 - 74 LV Volume 69.10 mL F: 46 - 106 LV Volume Index 42.9 mL/m2 F: 29 - 61 LA Volume 18.10 mL LA Volume Index 11.24 mL/m2 (M/F) 16-34 EF AP4 58.50 % EF AP2 69.2 % EF BP 65.4 % GL Strain -23.0 % M-Mode Dimensions RVDd 2.57 cm (0.9-2.6) LA Diam 3.53 cm (1.9-4.0) LVDd 4.11 cm (3.5-5.7) LVDs 2.97 cm (3.5-5.7) IVSd 0.70 cm (0.6-1.1) PWd 0.73 cm (0.6-1.1) EF (Teich) 54.20% FS 27.70% EDV (Teich) 74.70 mL ESV (Teich) 34.20 mL LV Diastology E Decel Time 173 (160-240 msec) E/A Ratio 1.2 Mitral Valve MV E Max Samuel. 84.0 (40-130 cm/s) MV A Velocity 71.0 (40-130 cm/s) E/A Ratio 1.18 MV PHT 51.0 ms Tricuspid Valve TR P. Velocity 242.00 cm/s RAP Estimate 10.00 mmHg RVSP 33.40 mmHg Left Ventricle The left ventricle is normal size. The left ventricular systolic function is normal. The left ventricular ejection fraction is within the normal range. There is increased LV wall thickness. There is normal LV segmental wall motion. The left ventricular diastolic function is normal. LVEF is 55%. Right Ventricle The right ventricle is normal size. The right ventricular systolic function is normal. Atria The left atrium size is normal. The right atrium size is normal. There is no Doppler evidence of interatrial shunt. Aortic Valve The aortic valve is mildly thickened. There is no aortic valvular stenosis. No aortic regurgitation is present. Mitral Valve The mitral valve is mildly thickened. No evidence of mitral valve stenosis. Mild mitral regurgitation: Tricuspid Valve The tricuspid valve leaflets are thin and pliable. Mild tricuspid regurgitation. RVSP is 20-25 mmHg. Pulmonic Valve The pulmonary valve is normal in structure. Trace pulmonic regurgitation. Great Vessels The aortic root is normal in size. The ascending aorta is normal in size. IVC is normal in size and collapses >50% with inspiration. Pericardium There is no pericardial effusion. Other Information Study Quality: Fair Conclusion Normal biventricular systolic function. Mild MR, mild TR. RVSP is 20-25 mmHg. Electronically signed by : Rupinder Gomez MD 05/10/2023 22:50:16
--- NOTE | 2023-05-08 10:55 | NM_ITS ---
APPROVED REPORT Exam: Nuclear Stress Test Indication: angaina..soa Patient Location: Outpatient Stress Tech: Shelly Rubin [place] Tech:Elli MathisKENNETH RT(R)(N) Ht: 5 ft 3 in Wt: 130 lbs Bra Size: 36b HR: 67 bpm BP: 156/75 mmHg BSA: 1.61 m2 Rhythm: NSR TID: 0.91 BMI: 23.0 History: Chest pain, dyspnea Procedure: Patient exercised on Lacho protocol 7 minutes and sec, resting heart rate 67 bpm, resting blood pressure 156/75 mmHg, with exercise maximum heart rate achived was 149 bpm which is 99 % of the maximum predicted heart rate and blood pressure was 180/80 mmHg. Test was stopped due to fatigue..soa. Patient denied any complaint of chest pain. Patient has average exercise capacity, achieved 10.1 METs of workload on treadmill, the blood pressure response to exercise was normal. Cardiac Stress and Resting SPECT Images: Cardiac Stress and Resting SPECT images were obtained using technetium 99m Myoview 32.9 mCi stress and 10.65 mCi at rest. Resting and stress imaging in supine and prone positions demonstrate no evidence of fixed or reversible perfusion defects. Gated imaging demonstrates normal global and regional LV systolic function. LVEF is calculated at > 75%. Conclusion: No evidence of fixed or reversible perfusion defects. Gated imaging demonstrates normal global and regional LV systolic function. LVEF is calculated at > 75%. Electronically signed by : Rupinder Gomez MD 05/11/2023 01:04:19
--- NOTE | 2023-05-08 13:50 | CA_ITS ---
APPROVED REPORT Exam: Exercise Treadmill Technologist: Shelly Hudson, Ht: 5 ft 3 in Wt: 130 lbs BSA: 1.61 m2 HR: 62 bpm BP: 151/59 mmHg Rhythm: NSR Medical History Medications: Omeprazole,,,,, FOLIC ACID,,,,, Calcium,,,,, Magnesium OXIDE,,,,, Losartan-HCTZ,,,,, Multivitamin,,,,, Alendronate,,,,, Vision shield,,,,, Stress Test Details Test: Lacho HR Resting HR: 67 bpm Max Heart Rate (APMHR): 151 bpm Max HR Achieved: 149 bpm Target HR (85% APMHR): 128 bpm % of APMHR: 99 Recovery HR: 80 bpm HR response to stress: Normal HR response to stress BP Resting BP: 156.0/75.0 mmHg Max BP: 180.0/80.0 mmHg Recovery BP: 140.0/60.0 mmHg BP response to stress: Normal blood pressure response to stress. ECG Resting ECG: NSR, occasional PVCs Stress EC.[address] depression Arrhythmia: PVCs Recovery ECG: Return to baseline within 3 minutes of recovery Recovery Arrhythmia: PVCs Clinical Exercise duration: 07:00 min Highest Stage Achieved: III Exercise capacity: 10.1 METs Stress ECG Conclusion The patient was able to exercise for a total of 7 minutes, 0 seconds. She achieved a total of 10.1 METS. She has average exercise capacity compared to age and sex matched peers. She has normal HR and BP response to exercise. Max HR: 149 % of PM: 99% Max BP: 180/80 METs: 10.1 Test stopped due to: SOA Symptoms: No CP. Arrhythmias/Ectopy: PVCs ST-T Changes: 0.[address] depression Conclusion: Average exercise capacity. Normal GXT. Myoview images reported separately. Test Summary REST . . . . . . . Sitting REST . . . . . . . Sitting REST . . . . . . . Standing REST 04:43 0.0 0.0 67 . 156/ 75 . . Stage 1 01:00 10.0 1.7 98 . . . . Stage 1 02:00 10.0 1.7 112 . . . . Stage 1 03:00 10.0 1.7 114 . . . . Stage 2 01:00 12.0 2.5 127 . 174/ 80 . . Stage 2 02:00 12.0 2.5 136 . 174/ 80 . . Stage 2 . . . . . . . Myoview Injected Stage 2 03:00 12.0 2.5 140 . 180/ 80 . . Stage 3 01:00 14.0 3.4 149 . . . Stop exercise at 07:00 RECOVERY 01:00 0.0 0.0 128 . . . . RECOVERY 02:00 0.0 0.0 96 . . . . RECOVERY 03:00 0.0 0.0 87 . 149/ 71 . . RECOVERY 04:00 0.0 0.0 82 . 142/ 70 . . RECOVERY 05:00 0.0 0.0 79 . 140/ 60 . . RECOVERY 05:16 0.0 0.0 79 . 140/ 60 . . Electronically signed by : Rupinder Gomez MD 05/11/2023 01:01:32
[2023-05-08] MEDS: SODIUM CHLORIDE 0.9% 10ML SYR (RAD ONLY) 10 ML IV ×2 (14:17)
[2023-05-08] MEDS: ISOTOPE MYOVIEW (PER STUDY) 1 DOSE IV (14:17)
== END 2023-05-08 23:59 ==
LOC: RT 09:45
PROVIDERS: PCP Internal Medicine Adolescent Medicine; Visit Provider Nurse Practitioner Family
DX: R53.83 Other fatigue; R06.00 Dyspnea, unspecified; I10 Essential (primary) hypertension; I20.89 Other forms of angina pectoris
CPT/HCPCS: 78452; 93017; 93018; 93306; A9502

== ENCOUNTER 2023-07-28 10:12 | Outpatient (CLI) | payer MEDICARE, MEDICAID, SELFPAY ==
--- NOTE | 2023-07-28 10:20 | XR_ITS ---
FINAL REPORT CLINICAL HISTORY: RT KNEE PAIN COMPARISON: None FINDINGS: Three views of the right knee reveal no evidence of fracture or dislocation. The bony alignment is normal. Mild degenerative change is noted. There is a small joint effusion. No localized soft tissue abnormality is identified. IMPRESSION: Mild degenerative change and small joint effusion. Reviewed, Interpreted and Dictated by Hugo Kendrick III, MD Transcribed by Katelynn Ramos Authenticated and [facility]
== END 2023-07-28 23:59 | disposition home or self-care (01) ==
PROVIDERS: PCP Internal Medicine Adolescent Medicine; Visit Provider Physician Assistant
DX: M25.561 Pain in right knee (principal)
CPT/HCPCS: 73562

== ENCOUNTER 2023-09-25 08:43 | Day surgery (SDC) | payer MEDICARE, MEDICAID, SELFPAY ==
[2023-09-23 11:16] VITALS: BMI 22.6
[2023-09-25 09:46] VITALS: BP 136/78; PULSE 61; RESP 18; TEMP 36.3; O2SAT 98; BMI 22.6
[2023-09-25] MEDS: LACTATED RINGERS 1000ML 1,000 ML 25 ML IV (09:53)
[2023-09-25 10:36] VITALS: O2SAT 98
--- NOTE | 2023-09-25 10:40 | P.PNANES_ITS ---
[facility] Disclaimer: The information contained in this section may have been updated after the patient was seen, as this information can be updated by other users. Medical History Palpitations Atypical angina Fatigue Edema Dyspnea Abnormal Holter monitor finding Multiple sclerosis History of hepatitis C HTN (hypertension) GERD (gastroesophageal reflux disease) Anxiety Legal blindness Osteoarthritis of feet, bilateral Cervical radiculopathy Multiple sclerosis Surgical History H/O colonoscopy H/O carpal tunnel repair H/O shoulder replacement History of total hysterectomy with removal of both tubes and ovaries H/O breast biopsy H/O tubal ligation Family History Other COPD (chronic obstructive pulmonary disease) Cancer Heart attack Social History Smoking Status: Former smoker tobacco type: cigarettes packs per day: 1 alcohol intake: never counseling provided: none substance use type: former substance user and methamphetamine current occupational status: disabled Travel in the last 8 weeks: Inside the [place] household members: family housing: house lives independently: No education level: high school service: No [place] [facility] [place]: No do you feel safe at home: Yes victim of physical abuse: No victim of emotional abuse: No victim of sexual abuse: No would you like helpful sources: No [facility] Anesthesia Checklist Patient Identification Patient Identification: Arm Band Structural Data Admitted From: Home Planned Operative Procedure/s: colonoscopy Consent for Planned Operative Procedure(s) Verified: Yes Verified Documents: Surgical Consent and History and Physical NPO Status Verified Time NPO: 00:00 Additional verifications Anesthesia Reactions: No (nausea) Hx Blood Transfusions: No Blood Transfusion Reaction: No Airway Assessment Mallampati Score:: Class II C-Spine Mobility Assessed: Yes TMJ Mobility Assessed: Yes Dentition: Good Dentition Neurological Assessment Level of Consciousness: Awake, Alert and Appropriate Anesthesia Plan Anesthesia Risk discussed: Yes Anesthesia Plan: Verified ASA Class: II Anesthesia Type: MAC
--- NOTE | 2023-09-25 10:58 | HMH.SCOPE ---
Procedure: Date: 09/25/23 Patient Date of :: 1955 Procedure Performed:: Screening colonoscopy Indications:: History of polyps Performing Provider:: Raymundo Her MD Referring Provider:: Tree Clemons MD Sedation:: Propofol Procedure:: After placing the patient in the left lateral decubitus position, the colonoscopy was gently inserted into the rectum and under direct visualization advanced to the cecum which was identified by transillumination in the right lower quadrant, identification of the ileocecal valve, appendiceal orifice, and cecal strap. Color, texture, mucosa, and anatomy of the colon were carefully examined with the scope. Findings:: Anal canal: normal Rectum: normal Sigmoid colon: normal without polyps or inflammatory changes Descending colon: normal without polyps or inflammatory changes Splenic flexure: normal Transverse colon: normal without polyps or inflammatory changes Hepatic flexure: normal Ascending colon: normal without polyps or inflammatory changes Cecum: normal Terminal ileum: not visualized Impression: Normal colonoscopy Recommendations:: Follow up examination in about FIVE years or so, sooner if clinically indicated in view of history of polyps. Complications:: None Estimated blood obtained (mL): 0 Colonoscopy Component Colonoscopy Component Was a colonoscopy performed during today's procedure?: Yes Recommended follow up colonoscopy of at least 10 years?: No If no, follow up colonoscopy recommended in ___ years?: Five Reason for not recommending >/= 10 yr follow-up interval?: History of polyps
[2023-09-25 11:00] VITALS: BP 86/51; PULSE 57; RESP 18; TEMP 36.2; O2SAT 99
[2023-09-25 11:10] VITALS: BP 98/42; PULSE 64; RESP 18; O2SAT 98
[2023-09-25 11:19] VITALS: BP 116/57; PULSE 62; RESP 18; O2SAT 100
[2023-09-25 11:30] VITALS: BP 112/71; PULSE 59; RESP 18; O2SAT 100
== END 2023-09-25 11:30 | disposition home or self-care (01) ==
PROVIDERS: PCP Internal Medicine Adolescent Medicine; Visit Provider Internal Medicine Gastroenterology
PROC: (CPT G0121; principal; 2023-09-25 10:30)
DX: Z12.11 Encounter for screening for malignant neoplasm of colon (principal); Z86.010 Personal history of colon polyps
CPT/HCPCS: G0121; J7120

== ENCOUNTER 2023-10-30 11:06 | Outpatient (CLI) | payer MEDICARE, MEDICAID, SELFPAY ==
--- NOTE | 2023-10-30 11:10 | XR_ITS ---
FINAL REPORT CLINICAL HISTORY: PAIN OF RT CLAVICLE no known trauma FINDINGS: RIGHT CLAVICLE Two views of the right clavicle were obtained. There is no acute fracture or dislocation. There is mild degenerative change of the acromioclavicular joint. Soft tissues are unremarkable. IMPRESSION: Degenerative change without acute bony abnormality. Reviewed, Interpreted and Dictated by Hugo Kendrick III, MD Transcribed by Ni Rajan Authenticated and [facility]
== END 2023-10-30 23:59 | disposition home or self-care (01) ==
LOC: RAD 11:07
PROVIDERS: PCP Internal Medicine Adolescent Medicine; Visit Provider Nurse Practitioner Family
DX: M89.8X1 Other specified disorders of bone, shoulder (principal)
CPT/HCPCS: 73000

== ENCOUNTER 2024-01-15 09:07 | Outpatient (CLI) | payer MEDICARE, MEDICAID, SELFPAY ==
[2024-01-15 09:17] LABS: Adenovirus F 40/41, stool Not Detected (NotDetected); Astrovirus Not Detected (NotDetected); Campylobacter Not Detected (NotDetected); Clostridium Difficile A/B, PCR Not Detected (NotDetected); Cryptosporidium Not Detected (NotDetected); Cyclospora Cayetanesis Not Detected (NotDetected); Entamoeba histolytica Not Detected (NotDetected); Enteroaggregative E coli Not Detected (NotDetected); Enteropathogenic E coli Not Detected (NotDetected); Enterotoxigenic E coli Not Detected (NotDetected); Giardia lamblia Not Detected (NotDetected); Norovirus Not Detected (NotDetected); Plesimonas Shigalloides, PCR Not Detected (NotDetected); Rotavirus A Not Detected (NotDetected); Salmonella, PCR Not Detected (NotDetected); Sapovirus Not Detected (NotDetected); Shiga-like toxin E coli Not Detected (NotDetected); Shigella Enterovasive E coli Not Detected (NotDetected); Vibrio Cholerae Not Detected (NotDetected); Vibrio, PCR Not Detected (NotDetected); Yersinia Entercolitica, PCR Not Detected (NotDetected)
== END 2024-01-15 23:59 | disposition home or self-care (01) ==
LOC: LAB 09:13
PROVIDERS: PCP Nurse Practitioner Family; Visit Provider Nurse Practitioner Family
DX: R19.7 Diarrhea, unspecified (principal)
CPT/HCPCS: 87506

== ENCOUNTER 2024-06-07 08:25 | Outpatient (CLI) | payer MEDICARE, MEDICAID, SELFPAY ==
--- NOTE | 2024-06-07 08:28 | MM_ITS ---
PROCEDURE INFORMATION: Exam: MG Bilateral Screening 3D Mammography Exam date and time: 06/07/2024 8:31 AM Age: 68 years old Clinical indication: Screening examination TECHNIQUE: Imaging protocol: Bilateral Screening tomosynthesis and 2D mammography including computer-aided detection (CAD) when performed. COMPARISON: 1. MG MM DIG SCREENING MAMM BI W/CAD 04/17/2023 10:44 AM 2. MG MM DIG SCREENING MAMM BI W/CAD 02/21/2022 10:05 AM FINDINGS: MAMMOGRAPHY: Breast composition: The breasts are almost entirely fatty. Mass: None. Architectural distortion: None. Calcifications: No suspicious calcifications. Asymmetric density: None. Skin thickening: None. Axillary adenopathy: None. IMPRESSION: No mammographic evidence of malignancy. Annual screening is recommended unless otherwise clinically indicated. ASSESSMENT: BI-RADS Category 1: Negative.
== END 2024-06-07 23:59 | disposition home or self-care (01) ==
LOC: RAD 08:25
PROVIDERS: PCP Nurse Practitioner Family; Visit Provider Nurse Practitioner Family
DX: Z12.31 Encounter for screening mammogram for malignant neoplasm of breast (principal)
CPT/HCPCS: 77063; 77067

== ENCOUNTER 2024-06-24 08:44 | Outpatient (CLI) | payer MEDICARE, MEDICAID, SELFPAY ==
[2024-06-24 09:15] LABS: Basophils # 0.1 K/mm3 (0-0.2); Basophils % 0.7 % (0.1-2.0); Eosinophils # 0.2 Kmm3 (0.0-0.4); Hematocrit 38.5 % (37.0-47.0); Hemoglobin 12.7 g/dL (12.2-16.2); Lymphocytes # 2.4 K/mm3 (0.7-4.5); Mean Corpuscular Hemoglobin 29.9 pg (27.0-31.2); Mean Corpuscular Volume 90.6 fl (81-99); Mean Platelet Volume 10.5 fl (7.4-10.4); Monocytes # 0.5 K/mm3 (0.1-1.0); Monocytes % 7.2 % (1.7-9.3); Neutrophils # 4.3 K/mm3 (1.8-7.8); Neutrophils % 57.8 % (37.0-80.0); Nucleated Red Blood Cells # 0 10^3/uL; Nucleated Red Blood Cells % 0 %; Platelet Count 226 K/mm3 (142-424); Red Blood Count 4.25 M/mm3 (4.20-5.40); Red Cell Distribution Width 12.2 % (11.5-17.5); Red Cell Distribution Width-SD 40.7 fL; White Blood Count 7.4 K/mm3 (4.8-10.8)
[2024-06-24 09:55] LABS: Alanine Aminotransferase 17 U/L (12-78); Albumin Level 4.7 g/dl (3.5-5.0); Albumin/Globulin Ratio 1.9 (1.1-1.8); Alkaline Phosphatase 56 U/L (38-126); Aspartate Amino Transferase 30 U/L (14-36); Bilirubin,Total 0.7 mg/dl (0.2-1.3); Blood Urea Nitrogen 15 mg/dl (7-17); Calcium 9.9 mg/dl (8.4-10.2); Carbon Dioxide 30 mmol/L (22.0-30.0); Chloride 105 mmol/L (98-107); Chol/HDL Ratio 3.5 (1-3.5); Cholesterol 183 mg/dl (140-200); Estimated Glomerular Filt Rate 71 ml/min (>60); GFR (African American) 86 ML/MIN (>60); Globulin 2.5 g/dL (1.3-3.2); Glucose 97 mg/dl (74-100); HDL Cholesterol 53 mg/dl (40-60); Sodium 138 mmol/L (136-145); Total Protein,Serum 7.2 g/dl (6.3-8.2); Triglycerides 122 mg/dl (30-150); VLDL Cholesterol 24 mg/dL (0-40)
[2024-06-24 10:05] LABS: Anion Gap 7.1 mEq/L (5-15); Potassium 4.1 mmoL/L (3.5-5.1)
[2024-06-24 10:06] LABS: Direct LDL Cholesterol 88.73 mg/dL (100-129)
[2024-06-24 10:12] LABS: 25-OH Vitamin D, Total 58.2 ng/mL (30-100)
== END 2024-06-24 23:59 | disposition home or self-care (01) ==
LOC: LAB 08:45
PROVIDERS: PCP Nurse Practitioner Family; Visit Provider Nurse Practitioner Family
DX: Z13.0 Encounter for screening for diseases of the blood and blood-forming organs and certain disorders involving the immune mechanism (principal); R07.9 Chest pain, unspecified; M81.0 Age-related osteoporosis without current pathological fracture; E78.5 Hyperlipidemia, unspecified; I10 Essential (primary) hypertension; Z87.891 Personal history of nicotine dependence
CPT/HCPCS: 36415; 80053; 80061; 82306; 85025

== ENCOUNTER 2024-06-28 09:06 | Outpatient (CLI) | payer MEDICARE, MEDICAID, SELFPAY ==
--- NOTE | 2024-06-28 09:09 | XR_ITS ---
FINAL REPORT TECHNIQUE: Bone densitometry calculations of the lumbar spine and left hip were obtained. CLINICAL HISTORY: SCREENNING COMPARISON: 05/13/2022 FINDINGS: Using L1-4, the bone mineral density of the spine is 1.020 g/cm2, corresponding to T-score of -0.2 and a Z score of 1.9. This is within the range of normal. Using the left hip, the bone mineral density of the femoral neck is 0.657 g/cm2, corresponding to a T-score of -1.7 and a Z-score of 0.1. This is within the range of osteopenia. Using the right hip, the bone mineral density of the femoral neck is 0.680 g/cm?, corresponding to a T-score of -1.5 and a Z-score of 0.3. This is within the range of osteopenia. NOTE: T-score: Standard deviation compared with peak bone mass of young adult mean. *Following the recommendations of the International Society of Bone densitometry, classification of hip BMD is based on the lower of two T-scores; total hip or femoral neck. IMPRESSION: 1. Bone mineral density of the lumbar spine within the range of normal. 2. Bone mineral density of the bilateral femoral necks within the range of normal. Reviewed, Interpreted and Dictated by Marisela Leos MD Transcribed by Maglays Mas Authenticated and [facility]
== END 2024-06-28 23:59 | disposition home or self-care (01) ==
LOC: RAD 09:07
PROVIDERS: PCP Nurse Practitioner Family; Visit Provider Nurse Practitioner Family
DX: M81.0 Age-related osteoporosis without current pathological fracture (principal)
CPT/HCPCS: 77080

== ENCOUNTER 2024-07-29 10:28 | Outpatient (CLI) | payer MEDICARE, MEDICAID, SELFPAY ==
--- NOTE | 2024-07-29 10:33 | XR_ITS ---
FINAL REPORT CLINICAL HISTORY: RT HIP PAIN chronic COMPARISON: 11/27/2021 FINDINGS: AP and frog leg views of the right hip were obtained. There is no acute fracture or dislocation. Degenerative disease is noted. Soft tissues are unremarkable. IMPRESSION: Degenerative changes without acute osseous abnormality of the right hip. Reviewed, Interpreted and Dictated by Marisela Leos MD Transcribed by Katelynn Ramos Authenticated and [facility]
== END 2024-07-29 23:59 | disposition home or self-care (01) ==
LOC: RAD 10:30
PROVIDERS: PCP Internal Medicine Adolescent Medicine; Visit Provider Physician Assistant
DX: M16.11 Unilateral primary osteoarthritis, right hip (principal)
CPT/HCPCS: 73502

== ENCOUNTER 2024-08-19 09:23 | Outpatient (CLI) | payer MEDICARE, MEDICAID, SELFPAY ==
--- NOTE | 2024-08-19 09:27 | XR_ITS ---
FINAL REPORT CLINICAL HISTORY: eval for arthritis COMPARISON: None FINDINGS: Three views of the right hand show no evidence of acute displaced fracture or dislocation of the visualized bony architecture. There is generalized osteopenia. The joint spaces are well preserved. There is no evidence of bony erosion. IMPRESSION: Generalized osteopenia without evidence of bony erosion. Reviewed, Interpreted and Dictated by Alina Larry MD Transcribed by Katelynn Ramos Authenticated and [facility]
--- NOTE | 2024-08-19 09:27 | XR_ITS ---
FINAL REPORT CLINICAL HISTORY: eval for arthritis COMPARISON: 11/27/2021 FINDINGS: Three views of the right foot show no evidence of acute displaced fracture or dislocation of the visualized bony architecture. Mild degenerative changes of the 1st MTP and 1st interphalangeal joints are stable. Generalized osteopenia is noted. There is no evidence of bony erosion. IMPRESSION: Stable mild degenerative changes. Reviewed, Interpreted and Dictated by Alina Larry MD Transcribed by Katelynn Ramos Authenticated and [facility]
--- NOTE | 2024-08-19 09:27 | XR_ITS ---
FINAL REPORT CLINICAL HISTORY: eval for arthritis COMPARISON: None FINDINGS: Three views of the left hand show no evidence of acute displaced fracture or dislocation of the visualized bony architecture. There is generalized osteopenia. The joint spaces are well preserved. There is no evidence of bony erosion. IMPRESSION: Generalized osteopenia without evidence of bony erosion. Reviewed, Interpreted and Dictated by Alina Larry MD Transcribed by Katelynn Ramos Authenticated and [facility]
--- NOTE | 2024-08-19 09:27 | XR_ITS ---
FINAL REPORT CLINICAL HISTORY: eval for arthritis COMPARISON: 12/13/2019 FINDINGS: Three views of the left foot show no evidence of acute displaced fracture or dislocation of the visualized bony architecture. There are mild degenerative changes of the 1st MTP joint and 1st interphalangeal joint, similar to the previous exam. Mild osteopenia is noted. There is no evidence of bony erosion. IMPRESSION: Mild degenerative changes. Reviewed, Interpreted and Dictated by Alina Larry MD Transcribed by Katelynn Ramos Authenticated and [facility]
--- OUTSIDE RECORDS SUMMARY | 2024-08-19 09:29 | XMS_ITS | Clinical Summary ---
Author Organization [facility] Address [address] [place] [address] Care Team Providers Care Sports Medicine Specialist Name Role Phone Tree Clemons MD Primary Care Provider [phone] Reed Herbert DO Unavailable [phone] Allergies Active Allergy Reactions Criticality Noted Date Comments Codeine Unknown - Patient st ates they do not know rxn details Low 09/11/2020 Morphine Unknown - Patient st ates they do not know rxn details Low 09/11/2020 Medications omeprazole (PriLOSEC) [address] capsule Take 40 mg by mouth 1 (one) time each day. 06/03/2020 Active calcium-vitamin D (calcium carbonate-vitami n D) 500-200 MG-UNIT tablet Take 1 tablet by mouth 1 (one) time each day. Active magnesium oxide (Mag-Ox) 400 mg tablet 400 mg 1 (one) time each day. 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 Immunizations Immunization Administration Dates Next Due Influenza, high-dose, quadrivalent 11/08/2019 Influenza, injectable, quadr ivalent, preservative free 11/09/2018,11/19/2017 Influenza, seasonal, injectable 11/20/2009,11/02,11/27/2007 Influenza, seasonal, injecta ble, preservative free 11/01/2016 Moderna COVID-19 Vaccine (Re d Cap) 12+ years 09/20/2020 Pneumococcal Conjugate PCV 13 01/06/2019 Pneumococcal Polysaccharide PPV23 05/04/2012 Tdap 12/13/2019,10/13/2009 Zoster, Recombinant 04/05/2019,01/27/2019 Family History Medical History Relation Name Comments Cardiac disorder Brother Cardiac disorder Mother Cataracts Mother Glaucoma Mother Macular degeneration Mother Cancer Mother's Sister Alzheimer's disease Other Cancer Other Heart attack Other Relation Name Status Comments Brother Mother Mother's Sister Other Social History Tobacco Use Types Packs/Day Years Used Date Smoking Tobacco: Former Smokeless Tobacco: Never Alcohol Use Standard Drinks/Week Comments Never 0 (1 standard drink = 0.6 oz pur e alcohol) Comments Unknown Sex and Gender Information Value Date Recorded Sex Assigned at Not on file Legal Sex Female 6:00 PM EDT Gender Identity Not on file Sexual Orientation Not on file Last Filed Vital Signs Vital Sign Reading Time Taken Comments Blood Pressure 124/80 10/16/2020 2:26 PM EDT Pulse 64 10/16/2020 2:26 PM EDT Temperature - - Respiratory Rate 16 10/16/2020 2:26 PM EDT Oxygen Saturation 98% 10/16/2020 2:26 PM EDT Inhaled Oxygen Concentration - - Weight 56.4 kg (124 lb 5.4 oz) 10/20/2020 1:59 P M EDT Height 162.6 cm (5' 4 ) 10/20/2020 1:59 PM EDT Body Mass Index 21.34 10/20/2020 1:59 PM EDT Plan of Treatment Health Maintenance Due Date Last Done Comments [facility]-Bone Density Scan 1955 [facility]-Depression Screening 1955 [facility]-Hepatitis C Screening 1955 [facility]-Medicare Annual Wellness (AWV) 1955 [facility]-Infant/Child/Adol SDOH Screenings 1955 [facility]- SDOH Screenings 12/22/1971 [facility]-Adult SDOH Screenings 12/22/1971 CT Colonography 1998 Colonoscopy 1998 FIT-DNA 1998 FIT 1998 FOBT 1998 Sigmoidoscopy 1998 [facility]-Colorectal Cancer Screening 1998 [facility]-Breast Cancer Screening 12/22/2003 [id number] Vaccine (3 - season) 2023 10/18/2020, 09/20/2020 [facility]-Pneumococcal Vaccine: 50+ Years (3 of 3 - PCV20 or PCV21) 01/07/2024 01/06/2019, 05/04/2012 [facility]-Influenza Vaccine (Season Ended) 2024 11/22/2020, 11/08/2019, 11/09/2018, Additional history exists [facility]-RSV Vaccine: 60+ Years or (1 - 1-dose 75+ series) 2028 [facility]-DTaP,Tdap,and Td Vaccines (3 - Td or Tdap) 12/12/2029 12/13/2019, 10/13/2009 [facility]-Zoster Vaccines Completed 04/05/2019, 9 HPV Vaccines Aged Out No longer eligi ble based on patient's age to complete this topic [facility]-HIB Vaccines Aged Out No longer e ligible based on patient's age to complete this topic [facility]-Hepatitis A Vaccines Aged Out No longer eligible based on patient's age to complete this topic [facility]-IPV Vaccines Aged Out No longer e ligible based on patient's age to complete this topic [facility]-Rotavirus Vaccines Aged Out No lo nger eligible based on patient's age to complete this topic Insurance MEDICAID-CT [facility] MEDICARE Care Teams Sports Medicine Specialist Relationship Specialty Start Date End Date Tree Clemons MD [address] [place] [address] PCP - General 09/11/20 Reed Herbert DO [address] [place] [id number] Consulting Physician Neurology 09/11/20
== END 2024-08-19 23:59 | disposition home or self-care (01) ==
LOC: RAD 09:24
PROVIDERS: PCP Nurse Practitioner Family; Visit Provider Nurse Practitioner Family
DX: M19.072 Primary osteoarthritis, left ankle and foot (principal); M19.071 Primary osteoarthritis, right ankle and foot; M85.89 Other specified disorders of bone density and structure, multiple sites; H53.9 Unspecified visual disturbance
CPT/HCPCS: 73130; 73630